=== PATIENT | female | born 1985 | race Caucasian/White ===

== ENCOUNTER 2016-04-24 22:52 | Emergency (ER) | payer MEDICAID ==
[2010-04-09 06:11] VITALS: BMI 28.2
[2016-04-24 23:27] LABS: BASOPHILS 0.9 % (0.0-2.0); EOSINOPHILS 4.2 % (0-7); HEMATOCRIT 40.4 % (36.0-48.0); HEMOGLOBIN 13.6 g/dL (12-16); IMMATURE GRANULOCYTES 0.1 % (0-5); LYMPHOCYTES 37.2 % (15-50); MCH 30.5 pg (26.0-34.0); MCHC 33.7 g/dL (31.0-37.0); MCV 90.6 fL (80.0-100.0); MEAN PLATELET VOLUME 11.8 fL (7.4-10.4); MONOCYTES 7.9 % (2-11); NEUTROPHILS 49.7 % (40-80); PLATELET COUNT 179 10x3/uL (130-400); RBC 4.46 10x6/uL (4.00-5.40); RDW 12.5 % (11.5-14.5); WBC 8.6 10x3/uL (4.8-10.8)
[2016-04-24 23:33] LABS: APPEARANCE TURBID (CLEAR); BILIRUBIN NEGATIVE (NEGATIVE); COLOR YELLOW (YELLOW); GLUCOSE NEGATIVE (NEGATIVE); HCG URINE NEGATIVE (NEGATIVE); KETONE NEGATIVE (NEGATIVE); LEUKOCYTE ESTERASE TRACE (NEGATIVE); NITRITE NEGATIVE (NEGATIVE); PH 7.5 (5.0-6.0); PROTEIN NEGATIVE (NEGATIVE); SPECIFIC GRAVITY 1.015 (1.005-1.020); UROBILINOGEN NORMAL (NORMAL)
[2016-04-24 23:38] LABS: AMORPHOUS SEDIMENT >1+ /lpf (NONE SEEN); BACTERIA MODERATE /hpf (NONE SEEN); EPITHELIAL CELLS OCC /hpf (0-5); GRANULAR CAST 0-5 /lpf (NONE SEEN); HYALINE CAST RARE /lpf (NONE SEEN); RED CELLS - URINE 0-5 /hpf (0-5); WHITE CELLS - URINE OCC /hpf (0-5)
== END 2016-04-25 02:15 | disposition home or self-care (01) ==
LOC: D.ER 22:52
PROVIDERS: Family Medicine
DX: R10.9 Unspecified abdominal pain (principal)

== ENCOUNTER → 2016-07-05 13:17 | Outpatient (CLI) | payer MEDICAID ==
[2010-04-09 06:11] VITALS: BMI 28.2
== END | disposition home or self-care (01) ==
LOC: D.CT 13:17
DX: S06.0X9A Concussion with loss of consciousness of unspecified duration, initial encounter (principal)

== ENCOUNTER 2016-09-16 15:19 | Emergency (ER) | payer MEDICAID ==
[2010-04-09 06:11] VITALS: BMI 28.2
[2016-09-16 16:00] LABS: APPEARANCE CLEAR (CLEAR); BILIRUBIN NEGATIVE (NEGATIVE); COLOR YELLOW (YELLOW); GLUCOSE NEGATIVE (NEGATIVE); KETONE NEGATIVE (NEGATIVE); LEUKOCYTE ESTERASE 1+ (NEGATIVE); NITRITE NEGATIVE (NEGATIVE); PROTEIN NEGATIVE (NEGATIVE); UROBILINOGEN NORMAL (NORMAL)
[2016-09-16 16:02] LABS: BACTERIA MODERATE /hpf (NONE SEEN); EPITHELIAL CELLS 0-5 /hpf (0-5)
[2016-09-16 16:26] LABS: EOSINOPHILS 4.8 % (0-7); HEMATOCRIT 42.4 % (36.0-48.0); HEMOGLOBIN 14.2 g/dL (12-16); IMMATURE GRANULOCYTES 0.3 % (0-5); LYMPHOCYTES 28.5 % (15-50); MCH 30.6 pg (26.0-34.0); MCHC 33.5 g/dL (31.0-37.0); MCV 91.4 fL (80.0-100.0); MEAN PLATELET VOLUME 12.7 fL (7.4-10.4); NEUTROPHILS 57.4 % (40-80); PLATELET COUNT 176 10x3/uL (130-400); RBC 4.64 10x6/uL (4.00-5.40); RDW 12.2 % (11.5-14.5)
[2016-09-16 16:42] LABS: HCG SERUM NEGATIVE (NEGATIVE)
[2016-09-16 16:44] LABS: ALBUMIN 3.7 g/dL (3.4-5.0); ALKALINE PHOSPHATASE 64 U/L (46-116); ALT (SGPT) 23 U/L (10-68); BILIRUBIN - TOTAL 0.47 mg/dL (0.2-1.3); CALC OSMOLALITY 280 mosm/kg (275-300); CALCIUM 8.9 mg/dL (8.5-10.1); CARBON DIOXIDE 25.6 mmol/L (21.0-32.0); CHLORIDE - SERUM 107 mmol/L (98-107); CREATININE - SERUM 0.7 mg/dL (0.6-1.3); GLUCOSE 82 mg/dL (74-106); POTASSIUM - SERUM 4.3 mmol/L (3.5-5.1); PROTEIN - SERUM 7.3 g/dL (6.4-8.2); SODIUM 142 mmol/L (136-145); UREA NITROGEN 10 mg/dL (7-18); eGFR NON AFRICAN AMERICAN > 90 mL/min (90-120)
== END 2016-09-16 19:11 | disposition home or self-care (01) ==
LOC: D.ER 15:19
PROVIDERS: Emergency Medicine
DX: R10.9 Unspecified abdominal pain (principal); N39.0 Urinary tract infection, site not specified

== ENCOUNTER 2019-01-23 15:00 | Inpatient (IN) | payer MEDICAID ==
[2019-01-23] VITALS (26 sets, daily range): BP systolic 100–125; BP diastolic 51–71; BMI 25.9
[~2019-01-23] VITALS: Ht 170.2 cm; Wt 88.0 kg
--- NOTE | ~2019-01-23 | HEMODYNAMI ---
PATIENT:AKHIL VILLALOBOS MEDICAL RECORD: [id number] : [birth year] LOCATION:ALEXIS DOtoniel08 ADMISSION DATE: 01/23/19 Generatedon:01/24/20199:16 Patient name: AKHIL VILLALOBOS Patient #: [id number] SSN: D OB: 1985 Date of study: 01/24/2019 Page: Of Hemodynamic Procedure Report Patient Data Patient Demographics Procedure consent was obtained First Name: AKHIL Gender: Female Last Name: GRISELDA : 1985 Middle Initial: DORIS Age: 33 year(s) Patient #: [id number] Race: Unknown Additional ID: [id number] Contact details [address]: [address] [place] [address] State: [place] City: [place] Zip code: [address] Past Medical History Allergies Allergen Reaction Date Comments Reported Natural rubber 01/24/2019 and latex Admission Admission Data Admission Date: 01/23/2019 Admission Time: 15:00 Room #: [facility] Height (in.): 67 BSA: 2.03 (m2) Height (cm.): 170.18 BMI: 31.48 (kg/m2) Weight (lbs.): 201 Weight (kg.): 91.17 Procedure Procedure Types Cath Procedure Peripheral Cath Diagnostic Procedure Tube Laser Operator Peripheral Procedures 4-Vessel Left Carotid Arteriogram Procedure Description Procedure Date Procedure Date: 01/24/2019 Procedure Start Time: 8:50 Procedure Staff Name Function Will Galeas MD Performing Physician Glenis Brown RT Photograph Developer Glenis Brown RT Monitor Mark Washington CRNA Additional personnel Lamar Saucedo RN Nurse Gregg Quiroz RT Scrub Procedure Data Cath Procedure Fluoroscopy Diagnostic fluoroscopy Total fluoroscopy Time: 1.9 time: 1.9 min min Diagnostic fluoroscopy Total fluoroscopy dose: 303 dose: 303 mGy mGy Contrast Material Contrast Material Type Amount (ml) Isovue 300 50 Entry Location Entry Primary Successful Side Size Upsize Upsize Entry Closure Succes sful Closure Location (Fr) 1 (Fr) 2 (Fr) Remarks Device Remarks Femoral Right Mynx artery Detective Captain 6Fr/7Fr Diagnostic catheters Device Type Used For End Catheter Placement Briana Ferrer 5FR. 100CM catheter ([id number]) Procedure Medications Medication Administration Route Dosage Heparin Flush Bag added to field 1 bags (1000units/500ml NS) Lidocaine 1% added to field 20 Hemodynamics Rest BSA: 2.03 (m2) O2 Consumption: Estimated: 276.08 (ml/min) O2 Consumption indexed : Estimated:136 (ml/min/m) Pre Cath Intra NCS Post Cath Medications Time Medication Route Dose Verified Delivered Reason Notes Effec tiveness by by 8:46:13 Heparin Flush added 1 Will Solis used for Bag to bags Adal Galeas procedure (1000units/500ml field MD CARABALLO NS) 8:46:25 Lidocaine 1% added 20ml Will Solis for local to vial Adal Galeas anesthetic field MD CARABALLO Procedure Log Time Note 8:20:23 Patient Height : 67 inches 8:20:26 Patient Weight : 201 lbs 8:21:16 Use device set IR Diagnostic 8:21:18 Tegaderm 4 x 4 (1626W) opened to sterile field. 8:21:19 Sterile Angiographic Pack opened to sterile field. 8:21:20 Bag Decanter (2001S) opened to sterile field. 8:21:23 ACIST Manifold (07114) opened to sterile field. 8:21:24 ACIST Hand Control (87805) opened to sterile field. 8:21:25 ACIST Syringe (33301) opened to sterile field. 8:21:50 BENTSON 145cm wire (X14354) opened to sterile field. 8:21:51 Micropuncture VSI 4FR kit opened to sterile field. 8:22:08 TUBING Contrast Injection High Pressure ([id number]) opened to sterile field. 8:22:09 SHEATH 5FR Scotia (CQR943) opened to sterile field. 8:22:19 8:22:23 Time tracking: Regular hours (M-F 7:00 - 5:00) 8:23:49 Plan of Care:Hemodynamics will remain stable., Cardiac rhythm will remain stable., Comfort level will be maintained., Respiratory function will remain adequate., Patient/ family verbilizes understanding of procedure., Procedure tolerated without complication., Recovers from procedure without complications.. 8:23:57 Patient received from CVICU to IR Alert and oriented. Tansferred to table in Supine position. 8:24:00 Signed procedure consent form obtained from patient. 8:24:01 Warm blankets applied, and harris hugger turned on for patient comfort. 8:24:04 Correct patient and procedure confirmed by team. 8:24:18 H&P Date Dictated: 01/24/2019 New H&P dictated by physician.. 8:24:20 Pre-procedure instructions explained to patient. 8:24:21 Pre-op teaching completed and patient verbalized understanding. 8:24:25 Family in waiting room. 8:24:27 Patient NPO since Midnight. 8:24:37 Patient allergic to Natural rubber and latex 8:24:42 Is the patient allergic to Iodine/contrast media? No. 8:24:55 Is patient on blood thinner?Yes 8:25:04 ACC The patient was administered the following blood thiners within the last 24 hours: ACCHeparin 8:25:17 Patient diabetic? No. 8:25:23 8:25:30 ----Pre-sedation anethsthesia assessment.----see anesthesia notes for monitoring of patient during procedure. TIVA sedation 8:26:14 8:26:44 IV patent on arrival in right hand with D5/.45%NaCl at KVO. 8:26:53 IV patent on arrival in left hand with D5/.45%NaCl at KVO. 8:27:03 Right groin area was prepped with chlora-prep and draped in sterile fashion 8:27:05 Sharps counted by scrub and verified 8:27:54 8:46:13 Heparin Flush Bag (1000units/500ml NS) 1 bags added to field was administered by Will Galeas MD; used for procedure; Verbal order read back and verified. 8:46:25 Lidocaine 1% 20ml vial added to field was administered by Will Galeas MD; for local anesthetic; Verbal order read back and verified. 8:49:21 Physician arrived 8:50:22 --------ALL STOP TIME OUT------ 8:50:22 Final Timeout: patient, procedure, and site verified with staff and physician. All members of the team are in agreement. 8:50:34 Procedure started. 8:50:34 Full Disclosure recording started 8:50:38 Local anesthetic to right femoral artery with Lidocaine 1% by Will Galeas MD.INITIAL ACCESS ONLY 8:51:50 Arterial access obtained using ultrasound guidance. 8:57:25 A [facility] Ferrer 5FR. 100CM catheter ([id number]) was advanced over the wire and used for . 9:07:33 Angiography was performed in multiple views 9:09:47 St Jose 6Fr sheath opened to sterile field. 9:10:00 MYNX CAREER PROFESSIONAL 6FR/7FR (WH7649) opened to sterile field. 9:10:29 A sheath was inserted into the Right Femoral artery 9:10:29 Sheath removed intact; hemostasis achieved with Mynx Detective Captain 6Fr/7Fr to the Right Femoral artery. 9:10:35 Procedure ended.(Physican Out) 9:13:32 Fluoroscopy time 01.90 minutes. 9:13:36 Fluoroscopy dose: 303 mGy 9:13:36 Flurop Dose total: 303 9:13:40 Contrast amount:Isovue 300 50ml. 9:13:42 Procedure and supply charges have been captured, reviewed, submitted and are correct. 9:15:25 See physician's report for complete and final results. 9:15:49 Report given to CVICU. 9:15:56 Patient transfered to CVICU with Bed. 9:15:58 End room use (Document Last) Device Usage Item Name Manufacture Quantity Catalog Hospital Part Current Minima l Lot# / Number Charge Number Stock Stock Serial# Code Tegaderm 4 x 3M 1 1626W [id number] [id number] 5 4 (1626W) Sterile Cardinal 1 [id number] 802534 967118 5 Angiographic Health Pack Bag Decanter Microtek 1 2001S 874339 47625 532326 5 (2001S) Medical Inc. ACIST Acist 1 85477 175578 880953 342002 5 Manifold Medical (52381) Systems Inc ACIST Hand Acist 1 77788 691848 281019 756246 5 Control Medical (78804) Systems Inc ACIST Syringe Acist 1 07912 021777 914378 367448 20 (25457) Medical Systems Inc BENTSON 145cm Cook Medical 1 A15271 101472 781008 5 wire (K36675) Micropuncture VSI VASCULAR 1 7266V 846601 533454 5 VSI 4FR kit SOLUTIONS TUBING Merit 1 [id number] 358288 698249 814091 5 Contrast Medical Injection High Pressure (SIY167U) SHEATH 5FR Terumo 1 LPY722 646634 619279 014527 5 Scotia (VSF386) Merit Impress Merit 1 [id number] 985809 509245 5 Ferrer Medical 5FR. 100CM catheter ([id number]) St Jose 6Fr St Jose 1 166841 980195 606703 5 sheath MYNX CAREER PROFESSIONAL Access 1 FF7923 724216 605308 5 6FR/7FR Closure (UF4905) Signature Audit Midway Stage Time Signature Unsigned Intra-Procedure 01/24/2019 Glenis Brown 9:16:16 AM RT(R) [facility] [address] [place] [address]
--- NOTE | 2019-01-23 14:35 | NUR ---
PATIENT ARRIVED TO UNIT VIA EMS STRETCHER
--- NOTE | 2019-01-23 15:30 | NUR ---
PUREWICK IN PLACE. CONTINUOUS SUCTION.
--- NOTE | 2019-01-23 15:45 | NUR ---
FAMILY AT BEDSIDE. ASSESSMENT DONE. MEDICATIONS SCANNED PER PROTOCOL
[2019-01-23 15:49] LABS: HEMATOCRIT 35.4 % (36.0-48.0); HEMOGLOBIN 11.5 g/dL (12-16); MCH 29.6 pg (26.0-34.0); MCHC 32.5 g/dL (31.0-37.0); MCV 91.2 fL (80.0-100.0); MEAN PLATELET VOLUME 11.9 fL (7.4-10.4); RBC 3.88 10x6/uL (4.00-5.40); RDW 13.1 % (11.5-14.5); WBC 11.5 10x3/uL (4.8-10.8)
[2019-01-23 15:58] LABS: APTT 56.2 SECONDS (22.8-39.4); INR 1.14 (0.85-1.17); PROTIME 14.1 SECONDS (11.6-15.0)
--- NOTE | 2019-01-23 16:47 | NUR ---
PTT CAME BACK INCREASED 100 UNITS PER PROTOCOL.
--- NOTE | 2019-01-23 17:03 | NUR ---
PATIENT STATES SHE IS PAIN. STATED IN AN HOUR SHE CAN GET HER PAIN MEDICATION. ALERT AND ORIENTED. NO DISTRESS. FAMILY AT BEDSIDE.
--- NOTE | 2019-01-23 18:42 | NUR ---
PATIENT IS ASLEEP. VALIUM GIVEN PER ORDER. VALIUM HAS SEEMED TO HELP PATIENT REST COMFORTABLY.
--- NOTE | 2019-01-23 19:00 | NUR ---
SHIFT ASSESSMENT COMPLETE. PT IS SITTING UP IN BED, A&O X4, PERRLA 3 MM, BRISK REACTION TO LIGHT. RR EVEN AND UNALBORED. S1S2 AUDIBLE, NSR SHOWING ON MONITOR. L FA PIV INFUSING PLASMALYTE @ 125 ML/HR AND HEPARIN @ 1200 UN/HR. R HAND PIV INFUSING DILAUDID VISCOSE DEPARTMENT WORKER: 0.2 MG Q10 MIN, BOLUS Q3H PRN 0.4 MG, 4 HR LOCKOUT, AND NS @ 30 ML/HR. RADIAL PULSES PALP. ABD FLAT, BS ACTIVE X4. PUREWICK CATH INTACT DRAINING CONCENTRATED URINE. R LEG ELEVATED ON PILLOWS, SPLINT IN PLACE, PEDAL PULSE PALP, GENERALIZED SWELLING NOTED. L PEDAL PULSE PALP, EQUAL. REFRESHMENTS BROUGHT TO BEDSIDE. CONSENTS SIGNED BY PT'S MOTHER AND PLACED ON FRONT OF CHART. ANSWERED ALL QUESTIONS, CALL LIGHT IN REACH, FAMILY AT BEDSIDE. NO FURTHER NEEDS AT THIS TIME.
[2019-01-23 19:37] LABS: BASOPHILS 0.3 % (0-2); HEMATOCRIT 34.5 % (36.0-48.0); HEMOGLOBIN 11.4 g/dL (12-16); IMMATURE GRANULOCYTES 0.3 % (0-5); LYMPHOCYTES 18.9 % (15-50); MCH 29.7 pg (26.0-34.0); MCV 89.8 fL (80.0-100.0); MEAN PLATELET VOLUME 11.7 fL (7.4-10.4); MONOCYTES 8.9 % (2-11); NEUTROPHILS 70.6 % (40-80); PLATELET COUNT 154 10x3/uL (130-400); RBC 3.84 10x6/uL (4.00-5.40); RDW 12.9 % (11.5-14.5); WBC 12.2 10x3/uL (4.8-10.8)
--- NOTE | 2019-01-23 20:00 | NUR ---
ADJUSTED PT'S R LEG X4 ASSIST. PT CRYING OUT IN PAIN, REGISTERED NURSE AMBULATORY BUTTON PRESSED. FAMILY AT BEDSIDE PROVIDING DISTRACTION FROM PAIN. WILL CONT TO ASSESS PAIN MANAGEMENT.
--- NOTE | 2019-01-23 21:00 | NUR ---
FAMILY AT BEDSIDE. REFRESHMENTS PROVIDED. FAN PLACED IN ROOM. NO FURTHER NEEDS AT THIS TIME.
--- NOTE | 2019-01-23 23:00 | NUR ---
LAB AT BEDSIDE DRAWING APTT. REASSESSMENT COMPLETE. NO CHANGES IN PT CONDITION. ENCOURAGE CORE WINDER MACHINE OPERATOR USE D/T BREAK THROUGH PAIN. REPOSITIONED SHOULDERS FOR COMFORT. FAMILY AT BEDSIDE. SEE FLOWSHEET FOR FURTHER DETAILS. WILL CONT WITH POC.
[2019-01-23 23:24] LABS: BASOPHILS 0.3 % (0-2); EOSINOPHILS 0.8 % (0-7); HEMATOCRIT 34.3 % (36.0-48.0); HEMOGLOBIN 11.1 g/dL (12-16); IMMATURE GRANULOCYTES 0.3 % (0-5); LYMPHOCYTES 25.5 % (15-50); MCH 29.5 pg (26.0-34.0); MCHC 32.4 g/dL (31.0-37.0); MCV 91.2 fL (80.0-100.0); MEAN PLATELET VOLUME 11.6 fL (7.4-10.4); MONOCYTES 7.6 % (2-11); NEUTROPHILS 65.5 % (40-80); PLATELET COUNT 147 10x3/uL (130-400); RBC 3.76 10x6/uL (4.00-5.40); WBC 11.4 10x3/uL (4.8-10.8)
--- NOTE | 2019-01-23 23:43 | NUR ---
APTT RESULTS ARE BACK. HEPARIN GTT ON HOLD FOR 30 MIN AND THEN DECREASE BY 100 UN/HR PER PROTOCOL. SEE HEPARIN FLOWSHEET FOR FURTHER DETAILS.
--- NOTE | 2019-01-23 23:48 | NUR ---
PRN VALIUM ADMIN FOR MUSCLE SPASMS. PT IS RESTING COMFORTABLY AT THIS TIME. WILL CONT TO MONITOR. FAMILY AT BEDSIDE.
[2019-01-24] VITALS (45 sets, daily range): BP systolic 96–150; BP diastolic 48–93
--- NOTE | 2019-01-24 00:18 | NUR ---
HEPARIN GTT RESTARTED, DECREASED BY 100 UN. NEW RATE IS 1100 UN/HR. WILL CONT TO MONITOR.
--- NOTE | 2019-01-24 03:00 | NUR ---
REASSESSMENT COMPLETE. VSS. CHANGED PUREWICK CATH. PT TOLERATED WELL. SEE FLOWSHEET FOR FURTHER DETAILS. REPOSITIONED FOR COMFORT. REGISTERED SALES ASSISTANT BUTTON IN HAND, ENCOURAGED USE WHEN IN PAIN AND PROVIDED EDUCATION R/T BREAKTHROUGH PAIN. NO FURTHER QUESTIONS. FAMILY AT BEDSIDE. WILL CONT TO MONITOR.
--- NOTE | 2019-01-24 03:40 | NUR ---
LAB AT BEDSIDE DRAWING APTT AND AM LAB.
[2019-01-24 04:18] LABS: BASOPHILS 0.4 % (0-2); EOSINOPHILS 1.2 % (0-7); HEMATOCRIT 32.6 % (36.0-48.0); HEMOGLOBIN 10.4 g/dL (12-16); IMMATURE GRANULOCYTES 0.2 % (0-5); LYMPHOCYTES 22.8 % (15-50); MCH 29.2 pg (26.0-34.0); MCHC 31.9 g/dL (31.0-37.0); MCV 91.6 fL (80.0-100.0); MEAN PLATELET VOLUME 11.7 fL (7.4-10.4); MONOCYTES 9.5 % (2-11); NEUTROPHILS 65.9 % (40-80); PLATELET COUNT 148 10x3/uL (130-400); RBC 3.56 10x6/uL (4.00-5.40); WBC 9.5 10x3/uL (4.8-10.8)
--- NOTE | 2019-01-24 05:00 | NUR ---
CHG BATH AND PARTIAL LINEN CHANGE PROVIDED. PT TOLERATED WELL. WARM BLANKET PROVIDED. NO FURTHER NEEDS AT THIS TIME. WILL CONT WITH POC.
--- NOTE | 2019-01-24 05:50 | NUR ---
CALLED OR, NO PRE-OP ORDERS. NO ANSWER.
--- NOTE | 2019-01-24 06:05 | NUR ---
CALLED OR, STILL NO ANSWER. NO PRE-OP ORDERS.
--- NOTE | 2019-01-24 06:54 | NUR ---
DR. DING AT BEDSIDE. UPDATED FAMILY ON SURGERY SCHEDULE. CALLING IR NOW.
--- NOTE | 2019-01-24 07:33 | NUR ---
UP IN BED AWAKE AT THIS TIME VISITING WITH FAMILY NO ACUTE DISTRESS NOTED. VSS. PT STATES HER CURRENT PAIN LEVEL IS AT A ZERO. PEDAL PULSES PRESENT. SEE SHIFT ASSESSMENT FOR FURTHER INFORMATION. WILL CONTINUE PLAN OF CARE.
--- NOTE | 2019-01-24 08:03 | NUR ---
LEFT AT THIS TIME TO IR ACCOMPANIED BY HOSPITAL STAFF. FAMILY AT BEDSIDE. LEFT ON MONITORING EQUIPMENT.
--- NOTE | 2019-01-24 09:30 | NUR ---
RETURNED FROM PROCEDURE AT THIS TIME. VSS. PT RESTING WITH EYES CLOSED, AWAKENS WHEN SPOKEN TO THEN GOES BACK TO SLEEP. FAMILY AT BEDSIDE. WILL CONTINUE PLAN OF CARE.
--- NOTE | 2019-01-24 09:47 | NUR ---
GROIN SITE CDI, NO EDEMA, NO REDNESS OR DRAINAGE. WILL CONTACT DR AN FOR FURTHER ORDERS REGARDING HEPARIN DRIP BEFORE PROCEDURE.
--- NOTE | 2019-01-24 10:12 | NUR ---
PER DR RUIZ NURSE ANATOLY, DR AN HAS SPOKEN WITH DR ARROYO AND STATE TO CONTINUE HEPARIN GTT AT THIS TIME AND PT WILL BE TAKEN TO OR WITH HEPARIN GTT RUNNING. NO ACUTE DISTRESS NOTED. WILL CONTINUE PLAN OF CARE.
--- NOTE | 2019-01-24 10:54 | NUR ---
NO ACUTE DISTRESS NOTED AT THIS TIME. VSS. FAMILY AT BEDSIDE. PEDAL PULSES PRESENT. RT GROIN SITE WDL. WILL CONTINUE TO OBSERVE.
[2019-01-24 11:45] LABS: BASOPHILS 0.3 % (0-2); EOSINOPHILS 0.8 % (0-7); HEMOGLOBIN 10.5 g/dL (12-16); IMMATURE GRANULOCYTES 0.2 % (0-5); LYMPHOCYTES 17.5 % (15-50); MCH 29.7 pg (26.0-34.0); MCHC 31.8 g/dL (31.0-37.0); MCV 93.2 fL (80.0-100.0); MEAN PLATELET VOLUME 11.8 fL (7.4-10.4); MONOCYTES 8.5 % (2-11); NEUTROPHILS 72.7 % (40-80); PLATELET COUNT 128 10x3/uL (130-400); RBC 3.54 10x6/uL (4.00-5.40); RDW 13.1 % (11.5-14.5); WBC 10.9 10x3/uL (4.8-10.8)
--- NOTE | 2019-01-24 11:48 | NUR ---
family at bedside. assessment done at this time. no distress. patient is sleeping. awaiting for surgery. was informed in report dr ward spoke with healthcare team in regards of keeping patient on heparin drip.
--- NOTE | 2019-01-24 12:35 | NUR ---
patient gone to procedure
--- NOTE | 2019-01-24 14:34 | NUR ---
report called by josé manuel
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
--- NOTE | 2019-01-24 15:10 | NUR ---
patient arrived to unit
--- NOTE | 2019-01-24 15:27 | NUR ---
ancef not given because anesthesia sheet states they gave it in the OR
[2019-01-24 15:39] LABS: BASOPHILS 0.4 % (0-2); EOSINOPHILS 0.1 % (0-7); HEMATOCRIT 32.4 % (36.0-48.0); HEMOGLOBIN 10.6 g/dL (12-16); IMMATURE GRANULOCYTES 0.8 % (0-5); LYMPHOCYTES 7.2 % (15-50); MCH 29.6 pg (26.0-34.0); MCHC 32.7 g/dL (31.0-37.0); MCV 90.5 fL (80.0-100.0); MEAN PLATELET VOLUME 11.6 fL (7.4-10.4); NEUTROPHILS 86.5 % (40-80); PLATELET COUNT 127 10x3/uL (130-400); RBC 3.58 10x6/uL (4.00-5.40); RDW 12.8 % (11.5-14.5); WBC 12.1 10x3/uL (4.8-10.8)
--- NOTE | 2019-01-24 15:45 | NUR ---
BLEEDING ON ZEPEDA MARKED VIA MARKER TO MONITOR BLEEDING. PULSE IS PALP BUT WEAK. WARM EXTREMITY.
--- NOTE | 2019-01-24 16:37 | NUR ---
PATIENT URINATED BUT PUREWICK SEEMS TO BE LEAKING. PATIENT WAS CLEANED UP
--- NOTE | 2019-01-24 16:37 | NUR ---
FULL LINEN CHANGE
--- NOTE | 2019-01-24 17:22 | NUR ---
PATIENT ABLE TO TURN FROM SIDE TO SIDE SLOWLY. PUREWICK IN PLACE
--- NOTE | 2019-01-24 18:48 | MORECARE ---
CASE MANAGEMENT DISCHARGE SUMMARY PATIENT: AKHIL VILLALOBOS UNIT: [id number] ADM DATE: 01/23/19 AGE: 33 : [birth year] SEX: F [facility] AUTHOR: CASH TIERNEY PHYSICIAN: REFERRING PHYSICIAN: MARK MANUEL MD DATE OF SERVICE: 01/24/19 Discharge Plan Patient Name: AKHIL VILLALOBOS [facility] [facility] 1985 Planned Disposition: Anticipated Discharge Date: Discharge Date: Expected LOS: Initial Reviewer: [email or web address] Initial Review Date: 01/24/2019 Generated: 01/24/19 7:47 pm DCPIA - Discharge Planning Initial Assessment Updated by [email or web address]: Yany Lovett on 01/24/19 6:46 pm * Is the patient Alert and Oriented? Yes * How many steps to enter\exit or inside your home? * Preadmission Environment Home with Family * ADLs Independent * List name and contact numbers for known caregivers / representatives who currently or will assist patient after discharge: [facility] [phone] * Verbal permission to speak to the caregivers and representatives has been obtained from the patient. Yes * Additional services required to return to the preadmission environment? No * Can the patient safely return to the preadmission environment? Yes * Has this patient been hospitalized within the prior 30 days at any hospital? No Patient Name: AKHIL VILLALOBOS Page [phone] at 1848 All edits/amendments must be made on the electronic document DICTATION DATE: 01/24/191846 CUSTOMER ASSISTANT: LENORA 01/24/191846 RPT#: [id number] DC DATE: STATUS: [facility]M [facility] [address] [place] [address] END OF REPORT
--- NOTE | 2019-01-24 18:54 | MORECARE ---
CASE MANAGEMENT DISCHARGE SUMMARY PATIENT: AKHIL VILLALOBOS UNIT: [id number] ADM DATE: 01/23/19 AGE: 33 : [birth year] SEX: F [facility]ED: [facility] AUTHOR: NIALL,DOC PHYSICIAN: REFERRING PHYSICIAN: MARK MANUEL MD DATE OF SERVICE: 01/24/19 Discharge Plan Patient Name: AKHIL VILLALOOBS Facility: [facility]:[place] : 1985 Planned Disposition: Anticipated Discharge Date: Discharge Date: Expected LOS: Initial Reviewer: [email or web address] Initial Review Date: 01/24/2019 Generated: 01/24/19 7:54 pm Comments DCP- Discharge Planning Updated by [email or web address]: Yany Lovett on 01/24/19 5:[address] Patient Name: AKHIL VILLALOBOS Admission Status: Elective Accout number: [id number] Admission Date: 01-23-2019 : 1985 Admission Diagnosis: Attending: MARK MANUEL Current LOS: 1 Anticipated DC Date: Planned Disposition: Primary Insurance: MEDICAID [place] Discharge Planning Comments: CM met with patient to complete initial dc planning assessment. CM educated patient on the CM role and verbal consent given by patient to complete assessment. Patient lives at home with her where she is independent with her care. At discharge patient plans to return home and feels this is a safe discharge. CM discussed availability of home health, rehab services, and medical equipment. Uncertain of DME needs will need wheelchair, BSC and uncertain past that point. Patient is going to need continued care at home family trying to decide where she is going to stay for a while. CM will need to check on transportation possibly with [employer] since patient can't bend leg. CM will continue to follow and will assist as needed with dc plans/needs. Pig Iron Loader: Yany Lovett DCPIA - Discharge Planning Initial Assessment Updated by [email or web address]: Yany Lovett on 01/24/19 6:46 pm * Is the patient Alert and Oriented? Yes * How many steps to enter\exit or inside your home? * Preadmission Environment Home with Family * ADLs Independent * List name and contact numbers for known caregivers / representatives who currently or will assist patient after discharge: NORM BASURTO - [phone] * Verbal permission to speak to the caregivers and representatives has been obtained from the patient. Yes * Additional services required to return to the preadmission environment? No * Can the patient safely return to the preadmission environment? Yes * Has this patient been hospitalized within the prior 30 days at any hospital? No Last DP export: 01/24/19 5:48 Patient Name: AKHIL VILLALOBOS Page [phone] at 1854 All edits/amendments must be made on the electronic document DICTATION DATE: 01/24/191853 STEEPING PRESS OPERATOR: LENORA 01/24/191853 RPT#: [id number] MO DATE: STATUS: ADM IN [facility] [address] [place] [address] END OF REPORT
--- NOTE | 2019-01-24 19:30 | NUR ---
REPORT REC'D AND CARE ASSUMED, PT REC'D ON O2 @ 2LITERS VIA NC, FAMILY AT BS, PT AWAKE, ALERT, AND ORIENTED X 4, RIGHT HAND PIV WITH NS @ 30CC/HR AND DILAUDID WEBSITE PROGRAMMER INFUSING, PT DENIES PAIN AT THIS TIME, LEFT FOREARM PIV WITH HEPARIN @ 1200UNITS/HR AND PLASMALYTE 125CC/HR, GENERALIZED BRUISING TO CHEST, TORSO, AND LEGS, PUREWICK IN USE, CLEAR YELLOW URINE NOTED, EXTERNAL FIXATOR TO RIGHT LEG, RIGHT LEG ELEVATED ON PILLOW, ICE PACKS TO SITE, PPP, PT DENIES NEEDS, SR UP X 2, BED IN LOW POSITION, CALL LIGHT AND WEBSITE PROGRAMMER IN REACH.
[2019-01-24 20:54] LABS: BASOPHILS 0.1 % (0-2); EOSINOPHILS 0 % (0-7); HEMATOCRIT 30.8 % (36.0-48.0); HEMOGLOBIN 10.2 g/dL (12-16); IMMATURE GRANULOCYTES 0.2 % (0-5); LYMPHOCYTES 6.9 % (15-50); MCH 29.9 pg (26.0-34.0); MCHC 33.1 g/dL (31.0-37.0); MCV 90.3 fL (80.0-100.0); MEAN PLATELET VOLUME 11.3 fL (7.4-10.4); MONOCYTES 4.8 % (2-11); PLATELET COUNT 145 10x3/uL (130-400); RBC 3.41 10x6/uL (4.00-5.40); RDW 12.7 % (11.5-14.5); WBC 10.7 10x3/uL (4.8-10.8)
--- NOTE | 2019-01-24 21:10 | NUR ---
5MG VALIUM GIVEN SLOW IVP FOR COMPLAINTS OF SPASMS IN LEG, PT USING DILAUDID CONTROL PANEL TESTER FOR PAIN CONTROL, ICE WATER PROVIDED, BRIM PRESSER CALLED FOR DR. ALCALA.
--- NOTE | 2019-01-24 22:00 | NUR ---
PT USING PUREWICK DEVICE BUT DEVICE LEAKING, PARTIAL BED CHANGE AND PUREWICK EXCHANGED FOR PT COMFORT, SIGNIFICANT OTHER REMAINS AT BS. PT DENIES FURTHER NEEDS, WILL CONT TO MONITOR CLOSELY FOR CHANGES.
--- NOTE | 2019-01-24 22:15 | NUR ---
DR. MANUEL AT , NEW ORDERS REC'D.
--- NOTE | 2019-01-24 22:30 | NUR ---
EVENING MEDS GIVEN ORDERED, PT DENIES FURTHER NEEDS, VSS.
--- NOTE | 2019-01-24 23:00 | NUR ---
REASSESSMENT COMPLETED, PT RESTING QUIETLY WATCHING TV, DENIES PAIN OR NEEDS, ICE PROVIDED ON REQUEST, BP STABLE, CM-ST @ 105, WILL CONT TO MONITOR FOR CHANGES.
[2019-01-25] VITALS (20 sets, daily range): BP systolic 86–130; BP diastolic 38–77
--- NOTE | 2019-01-25 01:15 | NUR ---
PUREWICK LEAKING, PARTIAL BATH AND LINEN CHANGE PROVIDED, PT REPOSITIONED FOR COMFORT, ICE PACKS REFILLED TO OPERATIVE LEG, ICE WATER PROVIDED ON REQUEST, SIGNIFICANT OTHER ASLEEP AT BS, VSS, PT DENIES FURTHER NEEDS.
--- NOTE | 2019-01-25 03:10 | NUR ---
PT RESTING QUIETLY, VSS, 5MG VALIUM GIVEN SLOW IVP FOR MUSCLE SPASMS, PT DENIES NEEDS.
--- NOTE | 2019-01-25 04:15 | NUR ---
LAB AT FOR AM LAB DRAW
[2019-01-25 04:20] LABS: BASOPHILS 0.2 % (0-2); EOSINOPHILS 0 % (0-7); HEMATOCRIT 28.3 % (36.0-48.0); HEMOGLOBIN 9.3 g/dL (12-16); IMMATURE GRANULOCYTES 0.2 % (0-5); LYMPHOCYTES 11.7 % (15-50); MCH 29.5 pg (26.0-34.0); MCHC 32.9 g/dL (31.0-37.0); MCV 89.8 fL (80.0-100.0); MEAN PLATELET VOLUME 11.6 fL (7.4-10.4); NEUTROPHILS 79.9 % (40-80); PLATELET COUNT 141 10x3/uL (130-400); RBC 3.15 10x6/uL (4.00-5.40); RDW 12.7 % (11.5-14.5); WBC 10.9 10x3/uL (4.8-10.8)
--- NOTE | 2019-01-25 06:20 | NUR ---
AM MEDS GIVEN ORDERED, DILAUDID SENSOR OPERATOR SYRINGE EXCHANGED, ICE PACKS REFILLED, PT DENIES FURTHER NEEDS, VSS.
[2019-01-25 07:33] LABS: BASOPHILS 0.2 % (0-2); EOSINOPHILS 0.2 % (0-7); HEMATOCRIT 28.4 % (36.0-48.0); HEMOGLOBIN 9.3 g/dL (12-16); IMMATURE GRANULOCYTES 0.3 % (0-5); LYMPHOCYTES 16.2 % (15-50); MCH 29.5 pg (26.0-34.0); MCHC 32.7 g/dL (31.0-37.0); MCV 90.2 fL (80.0-100.0); MEAN PLATELET VOLUME 11.1 fL (7.4-10.4); MONOCYTES 8.5 % (2-11); NEUTROPHILS 74.6 % (40-80); PLATELET COUNT 132 10x3/uL (130-400); RBC 3.15 10x6/uL (4.00-5.40); RDW 12.6 % (11.5-14.5); WBC 10.6 10x3/uL (4.8-10.8)
--- NOTE | 2019-01-25 14:07 | MORECARE ---
CASE MANAGEMENT DISCHARGE SUMMARY PATIENT: AKHIL VILLALOBOS UNIT: [id number] ADM DATE: 01/23/19 AGE: 33 : [birth year] SEX: F ROOM/BED: D[facility] AUTHOR: NIALL,DOC PHYSICIAN: REFERRING PHYSICIAN: MARK MANUEL MD DATE OF SERVICE: 01/25/19 Discharge Plan Patient Name: AKHIL VILLALOBOS Facility: [facility]:[place] : 1985 Planned Disposition: Anticipated Discharge Date: Discharge Date: Expected LOS: Initial Reviewer: [email or web address] Initial Review Date: 01/24/2019 Generated: 01/25/19 3:07 pm Comments DCP- Discharge Planning Updated by [id number]: Yany Lovett on 01/24/19 5:[address] Patient Name: AKHIL VILLALOBOS Admission Status: Elective Accout number: [id number] Admission Date: 01-23-2019 : 1985 Admission Diagnosis: Attending: MARK MANUEL Current LOS: 1 Anticipated DC Date: Planned Disposition: Primary Insurance: MEDICAID [place] Discharge Planning Comments: CM met with patient to complete initial dc planning assessment. CM educated patient on the CM role and verbal consent given by patient to complete assessment. Patient lives at home with her where she is independent with her care. At discharge patient plans to return home and feels this is a safe discharge. CM discussed availability of home health, rehab services, and medical equipment. Uncertain of DME needs will need wheelchair, BSC and uncertain past that point. Patient is going to need continued care at home family trying to decide where she is going to stay for a while. CM will need to check on transportation possibly with [employer] since patient can't bend leg. CM will continue to follow and will assist as needed with dc plans/needs. Engineering Director: Yany Lovett DCPIA - Discharge Planning Initial Assessment Updated by [email or web address]: Yany Lovett on 01/24/19 6:46 pm * Is the patient Alert and Oriented? Yes * How many steps to enter\exit or inside your home? * Preadmission Environment Home with Family * ADLs Independent * List name and contact numbers for known caregivers / representatives who currently or will assist patient after discharge: NORM BASURTO - [phone] * Verbal permission to speak to the caregivers and representatives has been obtained from the patient. Yes * Additional services required to return to the preadmission environment? No * Can the patient safely return to the preadmission environment? Yes * Has this patient been hospitalized within the prior 30 days at any hospital? No External Providers [facility] Next Contact Date: Service Request Date: Service Type: Resolution: Reviewer: Comments: Last DP export: 01/24/19 5:54 Patient Name: AKHIL VILLALOBOS Page [phone] at 1407 All edits/amendments must be made on the electronic document DICTATION DATE: 01/25/191406 BLANKER OPERATOR: LENORA 01/25/191406 RPT#: [id number] DC DATE: STATUS: ADM IN [facility] [address] [place] [address] END OF REPORT
--- NOTE | 2019-01-25 14:18 | MORECARE ---
CASE MANAGEMENT DISCHARGE SUMMARY PATIENT: AKHIL VILLALOBOS UNIT: [id number] ADM DATE: 01/23/19 AGE: 33 : 89 SEX: F ROOM/BED: D.[facility] AUTHOR: NIALL,DOC PHYSICIAN: REFERRING PHYSICIAN: MARK MANUEL MD DATE OF SERVICE: 01/25/19 Discharge Plan Patient Name: AKHIL VILLALOBOS Facility: [facility]:[place] : 1985 Planned Disposition: Anticipated Discharge Date: Discharge Date: Expected LOS: Initial Reviewer: [email or web address] Initial Review Date: 01/24/2019 Generated: 01/25/19 3:17 pm Comments DCP- Discharge Planning Updated by [email or web address]: Yany Lovett on 01/24/19 5:[address] Patient Name: AKHIL VILLALOBOS Admission Status: Elective Accout number: [id number] Admission Date: 01-23-2019 : 1985 Admission Diagnosis: Attending: MARK MANUEL Current LOS: 1 Anticipated DC Date: Planned Disposition: Primary Insurance: MEDICAID [place] Discharge Planning Comments: CM met with patient to complete initial dc planning assessment. CM educated patient on the CM role and verbal consent given by patient to complete assessment. Patient lives at home with her where she is independent with her care. At discharge patient plans to return home and feels this is a safe discharge. CM discussed availability of home health, rehab services, and medical equipment. Uncertain of DME needs will need wheelchair, BSC and uncertain past that point. Patient is going to need continued care at home family trying to decide where she is going to stay for a while. CM will need to check on transportation possibly with [employer] since patient can't bend leg. CM will continue to follow and will assist as needed with dc plans/needs. Bench Worker Apprentice: Yany Lovett DCPIA - Discharge Planning Initial Assessment Updated by [email or web address]: Yany Lovett on 01/24/19 6:46 pm * Is the patient Alert and Oriented? Yes * How many steps to enter\exit or inside your home? * Preadmission Environment Home with Family * ADLs Independent * List name and contact numbers for known caregivers / representatives who currently or will assist patient after discharge: NORM BASURTO - [phone] * Verbal permission to speak to the caregivers and representatives has been obtained from the patient. Yes * Additional services required to return to the preadmission environment? No * Can the patient safely return to the preadmission environment? Yes * Has this patient been hospitalized within the prior 30 days at any hospital? No External Providers External Provider: [facility] Next Contact Date: Service Request Date: Service Type: Resolution: Reviewer: Comments: Last DP export: 01/25/19 1:07 Patient Name: AKHIL VILLALOBOS Page [phone] at 1418 All edits/amendments must be made on the electronic document DICTATION DATE: 01/25/191417 RESIDENTIAL LIVING ASSISTANT: LENORA 01/25/191417 RPT#: [id number] DC DATE: STATUS: ADM IN [facility] [address] [place] [address] END OF REPORT
--- NOTE | 2019-01-25 14:50 | MORECARE ---
CASE MANAGEMENT DISCHARGE SUMMARY PATIENT: AKHIL VILLALOBOS UNIT: [id number] ADM DATE: 01/23/19 AGE: 33 : [birth year] SEX: F ROOM/BED: D.[facility] AUTHOR: NIALL,DOC PHYSICIAN: REFERRING PHYSICIAN: MARK MANUEL MD DATE OF SERVICE: 01/25/19 Discharge Plan Patient Name: AKHIL VILLALOBOS Facility: [facility]:[place] : 1985 Planned Disposition: Anticipated Discharge Date: Discharge Date: Expected LOS: Initial Reviewer: [email or web address] Initial Review Date: 01/24/2019 Generated: 01/25/19 3:49 pm Comments DCP- Discharge Planning Updated by [email or web address]: Yany Lovett on 01/24/19 5:[address] Patient Name: AKHIL VILLALOBOS Admission Status: Elective Accout number: [id number] Admission Date: 01-23-2019 : 1985 Admission Diagnosis: Attending: MARK MANUEL Current LOS: 1 Anticipated DC Date: Planned Disposition: Primary Insurance: MEDICAID [place] Discharge Planning Comments: CM met with patient to complete initial dc planning assessment. CM educated patient on the CM role and verbal consent given by patient to complete assessment. Patient lives at home with her where she is independent with her care. At discharge patient plans to return home and feels this is a safe discharge. CM discussed availability of home health, rehab services, and medical equipment. Uncertain of DME needs will need wheelchair, BSC and uncertain past that point. Patient is going to need continued care at home family trying to decide where she is going to stay for a while. CM will need to check on transportation possibly with [employer] since patient can't bend leg. CM will continue to follow and will assist as needed with dc plans/needs. Manager Competitive Intelligence: Yany Lovett DCPIA - Discharge Planning Initial Assessment Updated by [email or web address]: Yany Lovett on 01/24/19 6:46 pm * Is the patient Alert and Oriented? Yes * How many steps to enter\exit or inside your home? * Preadmission Environment Home with Family * ADLs Independent * List name and contact numbers for known caregivers / representatives who currently or will assist patient after discharge: NORM BASURTO - [phone] * Verbal permission to speak to the caregivers and representatives has been obtained from the patient. Yes * Additional services required to return to the preadmission environment? No * Can the patient safely return to the preadmission environment? Yes * Has this patient been hospitalized within the prior 30 days at any hospital? No External Providers External Provider: [facility] Next Contact Date: Service Request Date: Service Type: Resolution: Reviewer: Comments: Last DP export: 01/25/19 1:18 Patient Name: AKHIL VILLALOBOS Page [phone] at 1450 All edits/amendments must be made on the electronic document DICTATION DATE: 01/25/191448 BUTCHER SUPERVISOR: LENORA 01/25/191448 RPT#: [id number] DC DATE: STATUS: ADM IN [facility] [address] [place] [address] END OF REPORT
--- NOTE | 2019-01-25 15:42 | MORECARE ---
CASE MANAGEMENT DISCHARGE SUMMARY PATIENT: AKHIL VILLALOBOS UNIT: [id number] ADM DATE: 01/23/19 AGE: 33 : [birth year] SEX: F ROOM/BED: D[facility] AUTHOR: NIALL,DOC PHYSICIAN: REFERRING PHYSICIAN: MARK MANUEL MD DATE OF SERVICE: 01/25/19 Discharge Plan Patient Name: AKHIL VILLALOBOS Facility: [facility]:[place] : 1985 Planned Disposition: Anticipated Discharge Date: Discharge Date: Expected LOS: Initial Reviewer: [email or web address] Initial Review Date: 01/24/2019 Generated: 01/25/19 4:42 pm Comments DCP- Discharge Planning Updated by [email or web address]: Yany Lovett on 01/25/19 2:[address] CM spoke with patient and mother Janay regarding d/c needs. LEN signed for DME, HH and personal care. CM contacted [facility] with [facility] [phone] for wheelchair with leg extension, and bedside commode to deliver to patients room today. Home [facility] with [facility] spoke with Jagjit and he gave CM information for LR unit to contact Aishwarya [phone] fax [phone]. CM faxed over orders and records. CM spoke with [facility] regarding care givers and Medicaid benefits. Patient qualifies for 14.5hrs weekly of in home care. CM faxed records to Amber and notified her that patient will likely discharge on Monday. CM got order for Lovenox injections per Dr. Washington as to what patient will be sent home on to check and see if Medicaid requires a pre-auth. CM contacted [facility] in [place] [phone] for Lovenox 80mg BID for 5 days cost to patient will be $3.00. Called RX into pharmacy they will fill once patient gets there to peanut picker. Patient may require a slide board to get in W/C . CM will re-evaluate after PT works with patient again tomorrow. CM will setup [employer] bus transportation home once discharged. CM will continue to follow and assist as needed with discharge planning / needs. DCP- Discharge Planning Updated by [email or web address]: Yany Lovett on 01/24/19 5:[address] Patient Name: AKHIL VILLALOBOS Admission Status: Elective Accout number: [id number] Admission Date: 01-23-2019 : 1985 Admission Diagnosis: Attending: MARK MANUEL Current LOS: 1 Anticipated DC Date: Planned Disposition: Primary Insurance: MEDICAID [place] Discharge Planning Comments: CM met with patient to complete initial dc planning assessment. CM educated patient on the CM role and verbal consent given by patient to complete assessment. Patient lives at home with her where she is independent with her care. At discharge patient plans to return home and feels this is a safe discharge. CM discussed availability of home health, rehab services, and medical equipment. Uncertain of DME needs will need wheelchair, BSC and uncertain past that point. Patient is going to need continued care at home family trying to decide where she is going to stay for a while. CM will need to check on transportation possibly with [employer] since patient can't bend leg. CM will continue to follow and will assist as needed with dc plans/needs. Silver Miner: Yany Lovett DCPIA - Discharge Planning Initial Assessment Updated by [email or web address]: Yany Lovett on 01/24/19 6:46 pm * Is the patient Alert and Oriented? Yes * How many steps to enter\exit or inside your home? * Preadmission Environment Home with Family * ADLs Independent * List name and contact numbers for known caregivers / representatives who currently or will assist patient after discharge: JANAY CARBONE [facility] [phone] * Verbal permission to speak to the caregivers and representatives has been obtained from the patient. Yes * Additional services required to return to the preadmission environment? No * Can the patient safely return to the preadmission environment? Yes * Has this patient been hospitalized within the prior 30 days at any hospital? No Last DP export: 01/25/19 1:50 Patient Name: AKHIL VILLALOBOS Page 52586 at 1542 All edits/amendments must be made on the electronic document DICTATION DATE: 01/25/19 1542 CLINICAL PROJECT ASSISTANT: LENORA 01/25/19 1542 RPT#: [id number] DC DATE: STATUS: ADM IN [facility] [address] [place] [address] END OF REPORT
--- NOTE | 2019-01-25 15:55 | MORECARE ---
CASE MANAGEMENT DISCHARGE SUMMARY PATIENT: AKHIL VILLALOBOS UNIT: [id number] ADM DATE: 01/23/19 AGE: 33 : [birth year] SEX: F ROOM/BED: D[facility] AUTHOR: NIALL,DOC PHYSICIAN: REFERRING PHYSICIAN: MARK MANUEL MD DATE OF SERVICE: 01/25/19 Discharge Plan Patient Name: AKHIL VILLALOBOS Facility: [facility]:[place] : 1985 Planned Disposition: Anticipated Discharge Date: Discharge Date: Expected LOS: Initial Reviewer: [email or web address] Initial Review Date: 01/24/2019 Generated: 01/25/19 4:54 pm Comments DCP- Discharge Planning Updated by [id number]: Yany Lovett on 01/25/19 2:[address] CM spoke with patient and mother Janay regarding d/c needs. LEN signed for DME, HH and personal care. CM contacted [facility] with [facility] [phone] for wheelchair with leg extension, and bedside commode to deliver to patients room today. Home [facility] with [facility] spoke with Jagjit and he gave CM information for LR unit to contact Aishwarya [phone] fax [phone]. CM faxed over orders and records. CM spoke with [facility] regarding care givers and Medicaid benefits. Patient qualifies for 14.5hrs weekly of in home care. CM faxed records to [facility] and notified her that patient will likely discharge on Monday. CM got order for Lovenox injections per Dr. Washington as to what patient will be sent home on to check and see if Medicaid requires a pre-auth. CM contacted [facility] in [place] [phone] for Lovenox 80mg BID for 5 days cost to patient will be $3.00. Called RX into pharmacy they will fill once patient gets there to pick out hand. Patient may require a slide board to get in W/C . CM will re-evaluate after PT works with patient again tomorrow. CM will setup [employer] bus transportation home once discharged. CM will continue to follow and assist as needed with discharge planning / needs. DCP- Discharge Planning Updated by [email or web address]: Yany Lovett on 01/24/19 5:[address] Patient Name: AKHIL VILLALOBOS Admission Status: Elective Accout number: [id number] Admission Date: 01-23-2019 : 1985 Admission Diagnosis: Attending: MARK MANUEL Current LOS: 1 Anticipated DC Date: Planned Disposition: Primary Insurance: MEDICAID [place] Discharge Planning Comments: CM met with patient to complete initial dc planning assessment. CM educated patient on the CM role and verbal consent given by patient to complete assessment. Patient lives at home with her where she is independent with her care. At discharge patient plans to return home and feels this is a safe discharge. CM discussed availability of home health, rehab services, and medical equipment. Uncertain of DME needs will need wheelchair, BSC and uncertain past that point. Patient is going to need continued care at home family trying to decide where she is going to stay for a while. CM will need to check on transportation possibly with [employer] since patient can't bend leg. CM will continue to follow and will assist as needed with dc plans/needs. Registrar Museum: Yany Lovett DCPIA - Discharge Planning Initial Assessment Updated by [email or web address]: Yany Lovett on 01/25/19 3:45 pm * Is the patient Alert and Oriented? Yes * How many steps to enter\exit or inside your home? * PCP DR. RICKETTS * Pharmacy [facility] [phone] * Preadmission Environment Home with Family * ADLs Independent * List name and contact numbers for known caregivers / representatives who currently or will assist patient after discharge: JANAY CARBONE [facility] [phone] * Verbal permission to speak to the caregivers and representatives has been obtained from the patient. Yes * Additional services required to return to the preadmission environment? No * Can the patient safely return to the preadmission environment? Yes * Has this patient been hospitalized within the prior 30 days at any hospital? No Last DP export: 01/25/19 2:42 Patient Name: AKHIL VILLALOBOS Page [phone] at 7988 All edits/amendments must be made on the electronic document DICTATION DATE: 01/25/19 8174 SKETCH MAKER: LENORA 01/25/19 0774 RPT#: [id number] DC DATE: STATUS: ADM IN [facility] [address] [place] [address] END OF REPORT
--- NOTE | 2019-01-25 18:35 | NUR ---
0800: SEE FLOWSHEET FOR ASSESSMENT. 1050: DR. DING HERE. NEW ORDERS REC'D. 1400: DR. AN HERE. NEW ORDERS REC'D. 1550: ASSISSTED UP INTO WHEELCHAIR. R LEG ELEVATED. 1745: BACK TO BED WITH ASSISTANCE.
--- NOTE | 2019-01-25 19:30 | NUR ---
REPORT REC'D AND CARE ASSUMED, PT RESTING QUIETLY IN BED IN ON ROOM AIR, FAMILY AT BS, PT AWAKE, ALERT, AND ORIENTED X 4, PT COMPLAINS OF RIGHT KNEE PAIN RATING "8" ON 0-10 PAIN SCALE, ASSISTED PT TO REPOSITION FOR COMFORT, CM-ST @ 120, TEMP 99.0, ICE PACKS TO OPERATIVE LEG, GENERALIZED BRUISING NOTED TO CHEST, TORSO, ARMS AND LEGS, TOES ON RIGHT FOOT COLD TO TOUCH, PP WEAK, BED IN LOW POSITION, CALL LIGHT IN REACH.
--- NOTE | 2019-01-25 19:35 | NUR ---
ADDITIONAL DOSE OF OXY IR 5MG GIVEN PO ORDERED.
--- NOTE | 2019-01-25 19:55 | NUR ---
PT CRYING IN PAIN, STATES "MY KNEE HURTS SO BAD", EXTERNAL FIXATOR REMAINS IN PLACE, DRSG INTACT, PT FEELS PAIN MEDICATION NOT WORKING, ATTEMPTED TO CALL DR. DING AT THIS TIME.
--- NOTE | 2019-01-25 20:10 | NUR ---
CALLED DR. DING AGAIN, INFORMED BY SCRUB NURSE THAT HE WAS IN OR AT THIS TIME, PAGED DR. RODRIGEZ AT THIS TIME.
--- NOTE | 2019-01-25 20:15 | NUR ---
SPOKE WITH DR. RODRIGEZ, NEW ORDERS REC'D
--- NOTE | 2019-01-25 20:30 | NUR ---
25MG DEMEROL AND 4MG ZOFRAN GIVEN SLOW IVP VIA RIGHT HAND SALINE LOCK, PT COMPLAINS OF BURNING AT SITE, BUT STATES BURNING SETTLES DOWN AFTER A FEW MINUTES, BP STABLE, CM-SR @ 98, BP 110/61, HEPARIN INFUSING @ 1200 UNITS/HR TO LEFT FOREARM, WILL MONITOR CLOSELY FOR CHANGES.
--- NOTE | 2019-01-25 21:30 | NUR ---
PT RESTING QUIELTY WATCHING TV, VSS, REPORTS DEMEROL HELPED A GREAT DEAL, EVENING COLACE AND VISTARIL GIVEN PO ORDERED, PT DENIES FURTHER NEEDS.
--- NOTE | 2019-01-25 21:50 | NUR ---
PT ASSISTED ONTO FRACTURE MARES TO VOID, VOIDED 200CC YELLOW URINE, PT PERFORMED PERICARE INDEPENDENTLY, ASSISTED TO POSITION FOR COMFORT, BEDSIDE TABLE, AND CALL LIGHT IN REACH.
--- NOTE | 2019-01-25 23:00 | NUR ---
REASSESSMENT COMPLETED, PT TALKING ON CELL PHONE, DR. ALCALA PROVIDED ON REQUEST, TEMP DECREASED TO 98.2, ASSISTED PT TO REPOSITION PILLOWS UNDER RIGHT LEG AT THIS TIME, ICE PACKS REMOVED PER REQUEST.
[2019-01-26] VITALS (21 sets, daily range): BP systolic 102–134; BP diastolic 34–80
--- NOTE | 2019-01-26 00:45 | NUR ---
PT ASSISTED ONTO FRACTURE PAIN, VOIDED 200CC YELLOW URINE, PT ASSISTED TO REPOSITION FOR COMFORT, VSS
--- NOTE | 2019-01-26 01:10 | NUR ---
PT COMPLAINS OF MUSCLE SPASMS STARTING TO RIGHT LEG, 5MG VALIUM GIVEN SLOW IVP, BP STABLE, WILL MONITOR CLOSELY FOR CHANGES.
[2019-01-26 09:45] LABS: BASOPHILS 0.2 % (0-2); EOSINOPHILS 2.3 % (0-7); HEMATOCRIT 30.9 % (36.0-48.0); HEMOGLOBIN 9.9 g/dL (12-16); IMMATURE GRANULOCYTES 0.2 % (0-5); LYMPHOCYTES 35.2 % (15-50); MCH 29.3 pg (26.0-34.0); MCV 91.4 fL (80.0-100.0); MEAN PLATELET VOLUME 12.4 fL (7.4-10.4); MONOCYTES 8.2 % (2-11); NEUTROPHILS 53.9 % (40-80); RBC 3.38 10x6/uL (4.00-5.40); RDW 12.9 % (11.5-14.5); WBC 9.2 10x3/uL (4.8-10.8)
[2019-01-26 09:49] LABS: PLATELET COUNT 178 10x3/uL (130-400)
[2019-01-26 09:54] LABS: ALBUMIN 1.5 g/dL (3.4-5.0); ALKALINE PHOSPHATASE 61 U/L (46-116); ALT (SGPT) 57 U/L (10-68); BILIRUBIN - TOTAL 0.61 mg/dL (0.2-1.3); CALC OSMOLALITY 269 mosm/kg (275-300); CALCIUM 8.4 mg/dL (8.5-10.1); CARBON DIOXIDE 29.6 mmol/L (21.0-32.0); CHLORIDE - SERUM 104 mmol/L (98-107); CREATININE - SERUM 0.7 mg/dL (0.6-1.3); GLUCOSE 86 mg/dL (74-106); POTASSIUM - SERUM 3.7 mmol/L (3.5-5.1); PROTEIN - SERUM 6.2 g/dL (6.4-8.2); SODIUM 137 mmol/L (136-145); UREA NITROGEN 4 mg/dL (7-18); eGFR NON AFRICAN AMERICAN > 90 mL/min (90-120)
--- NOTE | 2019-01-26 17:30 | NUR ---
0740: REC'D AWAKE AND ALERT. SEE FLOWSHEET FOR ASSESSMENT. 0900: DR. DING HERE. R LEG UNWRAPPED AND PIN CARE DONE. 1000: DR. NÚÑEZ HERE. NEW ORDERS REC'D. 1220: UP TO WHEELCHAIR WITH ASSISTANCE X 4 1240: OFF UNIT IN WHEELCHAIR WITH SISTER. 1400: RETURN TO ROOM. 1430: BACK TO BED WITH ASSISTANCE X 4. 1630: RESTING WITH EYES CLOSED. NO DISTRESS NOTED. MOTHER AND SISTER AT BEDSIDE.
--- NOTE | 2019-01-26 19:00 | NUR ---
SHIFT ASSESSMENT COMPLETE. PT IS A&O X4 AND STATES THAT SHE HAS 7-8/10 LEG PAIN. REPOSITIONED LEG X2 ASSIST. FAMILY AT BEDSIDE. PERRLA, 3 MM, BRISK REACTION TO LIGHT. RR EVEN AND UNLABORED, CLEAR BREATH SOUNDS HEARD BILAT THROUGHOUT ALL LOBES. S1S2 AUDIBLE, HR 94 NSR SHOWING ON MONITOR. R HAND PIV S/L. L FA PIV INFUSING HEPARIN @ 1400 UN/HR (14 ML/HR). ABD FLAT, SOFT, HYPOACTIVE BS X4. R GROIN DRESSING CDI. R LEG IN EXT FIX, DERIK BANDAGE ON. PEDAL PULSE PRESENT. GENERALIZED BRUISING NOTED ON ALL EXT. REFRESHMENTS BROUGHT TO BEDSIDE. VSS. CALL LIGHT IN REACH, WILL CONT TO MONITOR.
--- NOTE | 2019-01-26 21:00 | NUR ---
PRN DEMEROL AND VISTARIL GIVEN D/T INCREASED PAIN AND ANXIETY. REPOSITIONED FOR COMFORT. MOTHER AND SISTER AT BEDSIDE. VSS. WILL CONT TO MONITOR CLOSELY.
--- NOTE | 2019-01-26 22:30 | NUR ---
PT IS HAVING BREAK-THROUGH PAIN, PRN OXYCODONE ADMIN. REPOSITIONED FOR COMFORT. WILL CONT WITH POC.
--- NOTE | 2019-01-26 23:00 | NUR ---
REASSESSMENT COMPLETE. NO CHANGES IN PT CONDITION. VSS. SEE FLOWSHEET FOR FURTHER DETAILS. CALL LIGHT IN REACH, SISTER AND MOTHER AT BEDSIDE. WILL CONT TO MONITOR CLOSELY.
--- NOTE | 2019-01-26 23:30 | NUR ---
INCREASED HEPARIN GTT BY 100 UN/HR PER PROTOCOL. SEE FLOWSHEET FOR FURTHER DETAILS.
[2019-01-27] VITALS (12 sets, daily range): BP systolic 104–115; BP diastolic 59–75
--- NOTE | 2019-01-27 01:00 | NUR ---
PT RESTING PEACEFULLY WITH NO SIGNS OF ACUTE DISTRESS NOTED. VSS. WILL CONT TO MONITOR CLOSELY.
--- NOTE | 2019-01-27 03:00 | NUR ---
REASSESSMENT COMPLETE. PRN DEMEROL AND VISTARIL ADMIN. D/C R HAND PIV D/T IRRITATION, CATH TIP INTACT. REPOSITIONED R LEG FOR COMFORT. VSS. NO FURTHER CHANGES AT THIS TIME. SISTER AT BEDSIDE. WILL CONT TO MONITOR CLOSELY.
--- NOTE | 2019-01-27 05:00 | NUR ---
I&O'S COLLECTED. PT RESTING PEACEFULLY. VSS. SISTER AT BEDSIDE. WILL CONT TO MONITOR CLOSELY.
--- NOTE | 2019-01-27 06:00 | NUR ---
CHG BATH PROVIDED. REPOSITIONED FOR COMFORT. 22G PIV STARTED TO R FA X 1 ATTEMPT. ANCEF INFUSING. PT TOLERATED WELL.
[2019-01-27 06:15] LABS: BASOPHILS 0.4 % (0-2); EOSINOPHILS 2.6 % (0-7); HEMATOCRIT 32.2 % (36.0-48.0); HEMOGLOBIN 10.6 g/dL (12-16); IMMATURE GRANULOCYTES 0.4 % (0-5); LYMPHOCYTES 19.6 % (15-50); MCH 29.5 pg (26.0-34.0); MCHC 32.9 g/dL (31.0-37.0); MCV 89.7 fL (80.0-100.0); MEAN PLATELET VOLUME 11.6 fL (7.4-10.4); MONOCYTES 8.8 % (2-11); NEUTROPHILS 68.2 % (40-80); PLATELET COUNT 189 10x3/uL (130-400); RBC 3.59 10x6/uL (4.00-5.40); RDW 12.8 % (11.5-14.5); WBC 9.7 10x3/uL (4.8-10.8)
[2019-01-27 06:24] LABS: ALKALINE PHOSPHATASE 96 U/L (46-116); CALC OSMOLALITY 268 mosm/kg (275-300); CALCIUM 8.5 mg/dL (8.5-10.1); CARBON DIOXIDE 27.5 mmol/L (21.0-32.0); CHLORIDE - SERUM 102 mmol/L (98-107); CREATININE - SERUM 0.6 mg/dL (0.6-1.3); GLUCOSE 128 mg/dL (74-106); POTASSIUM - SERUM 3.8 mmol/L (3.5-5.1); PROTEIN - SERUM 6.7 g/dL (6.4-8.2); SODIUM 135 mmol/L (136-145); UREA NITROGEN 5 mg/dL (7-18); eGFR NON AFRICAN AMERICAN > 90 mL/min (90-120)
[2019-01-27 06:25] LABS: ALBUMIN 2.7 g/dL (3.4-5.0); ALT (SGPT) 128 U/L (10-68)
--- NOTE | 2019-01-27 19:00 | NUR ---
RECEIVED PATIENT IN BED, AWAKE ALERT AND ORIENTED X 4. FAMILY AT BEDSIDE. SHIFT ASSESSMENT COMPLETED PER FLOW SHEET WITH NO ACUTE DISTRESS OBSERVED. CALL LIGHT IN REACH AND ABLE TO UTILIZE TO MAKE NEEDS KNOWN.
[2019-01-28 03:00] VITALS: BP 100/62
[2019-01-28 06:33] LABS: BASOPHILS 0.6 % (0-2); EOSINOPHILS 2.8 % (0-7); HEMATOCRIT 34.4 % (36.0-48.0); HEMOGLOBIN 11.6 g/dL (12-16); IMMATURE GRANULOCYTES 0.7 % (0-5); LYMPHOCYTES 26.1 % (15-50); MCH 30.2 pg (26.0-34.0); MCHC 33.7 g/dL (31.0-37.0); MCV 89.6 fL (80.0-100.0); MEAN PLATELET VOLUME 11.9 fL (7.4-10.4); MONOCYTES 9.1 % (2-11); NEUTROPHILS 60.7 % (40-80); PLATELET COUNT 186 10x3/uL (130-400); RBC 3.84 10x6/uL (4.00-5.40); RDW 13.2 % (11.5-14.5); WBC 10.2 10x3/uL (4.8-10.8)
[2019-01-28 07:00] VITALS: BP 106/65
--- NOTE | 2019-01-28 07:30 | NUR ---
PATIENT AMBULATED TO WHEELCHAIR.
--- NOTE | 2019-01-28 07:30 | NUR ---
AMBULATED PATIENT TO WHEELCHAIR PER PATIENT REQUEST. ASSESSMENT DONE AT THIS TIME. NO DISTRESS. VSS. WILL CONTINUE TO MONITOR PATIENT.
[2019-01-28 07:37] LABS: ALBUMIN 2.9 g/dL (3.4-5.0); ALKALINE PHOSPHATASE 122 U/L (46-116); BILIRUBIN - TOTAL 0.87 mg/dL (0.2-1.3); CALC OSMOLALITY 268 mosm/kg (275-300); CALCIUM 8.5 mg/dL (8.5-10.1); CARBON DIOXIDE 27.5 mmol/L (21.0-32.0); CHLORIDE - SERUM 101 mmol/L (98-107); CREATININE - SERUM 0.5 mg/dL (0.6-1.3); GLUCOSE 93 mg/dL (74-106); PROTEIN - SERUM 6.4 g/dL (6.4-8.2); SODIUM 136 mmol/L (136-145); UREA NITROGEN 5 mg/dL (7-18); eGFR NON AFRICAN AMERICAN > 90 mL/min (90-120)
[2019-01-28 07:40] LABS: ALT (SGPT) 163 U/L (10-68); POTASSIUM - SERUM 4.6 mmol/L (3.5-5.1)
[2019-01-28 11:00] VITALS: BP 101/60
--- NOTE | 2019-01-28 11:06 | NUR ---
PIN CARE DONE BY MOTHER NORM WEN.
[2019-01-28 15:00] VITALS: BP 103/72
--- NOTE | 2019-01-28 15:25 | NUR ---
PATIENT RESTING. EASILY AROUSED. SEE ADL'S.
--- NOTE | 2019-01-28 17:52 | NUR ---
PATIENT AMBULATED TO AND FROM CHAIR TO WHEELCHAIR WITH PARTIAL ASSISTANCE. NO DISTRESS. VSS. PATIENT IS ALERT AND ORIENTED. MULTIPLE VOIDS. NO BM. PAIN MEDS GIVEN PER MAR. COMFORT MEASURES FOR R LEG. PATIENT AMBULATED WITH PHYSICAL THERAPY LEARNING HOW TO GET OUT OF WHEELCHAIR BY HERSELF WITH MINIMAL ASSITANCE. PATIENT DID NOT EAT MEALS DUE TO DECREASE IN APPETITE. FAMILY AT BEDSIDE. PIN CARE DONE BY MOTHER RN --OBSERVED DURING THIS TIME. WILL CONTINUE TO MONITOR
[2019-01-28 19:00] VITALS: BP 104/67
--- NOTE | 2019-01-28 19:00 | NUR ---
SHIFT ASSESSMENT COMPLETE. PT IS UP IN WHEELCHAIR AND IS IN GOOD SPIRITS. A&O X4, PERRLA, 3 MM, BRISK REACTION TO LIGHT. RR EVEN AND UNLABORED, CLEAR BREATH SOUNDS HEARD BILAT THROUGHOUT ALL LOBES. S1S2 AUDIBLE. ABD FLAT AND SOFT, BS ACTIVE X4. L FA PIV INFUSING HEPARIN @ 1500 UNITS/HR (15 ML/HR). GENERALIZED BRUISING NOTED ON UPPER AND LOWER EXT WELL CHEST. R GROIN DRESSING CDI. R LEG EXT FIXATOR AND DERIK BANDAGE IN PLACE. RADIAL AND PEDAL PULSES PALP. MOTHER AT BEDSIDE. NO FURTHER NEEDS AT THIS TIME. WILL CONT TO MONITOR CLOSELY.
--- NOTE | 2019-01-28 19:30 | NUR ---
PIN CARE PROVIDED. DERIK BANDAGE APPLIED TO R LEG. PT TOLERATED WELL. WILL CONT WITH POC.
--- NOTE | 2019-01-28 20:30 | NUR ---
PM MEDS TAKEN WITHOUT DIFFICULTY. PRN OXYCODONE ADMIN FOR PAIN OF 6/10. REFRESHMENTS BROUGHT TO BEDSIDE.
--- NOTE | 2019-01-28 22:00 | NUR ---
PT XFER TO BED X2 ASSIST. PT WAS ABLE TO DO MOST OF THE WORK HERSELF. REPOSITIONED FOR COMFORT. PT EATING DINNER. CALL LIGHT IN REACH.
[2019-01-28 23:00] VITALS: BP 103/75
--- NOTE | 2019-01-28 23:00 | NUR ---
PT RESTING PEACEFULLY WITH NO SIGNS OF ACUTE DISTRESS NOTED. VSS. WILL CONT WITH POC.
--- NOTE | 2019-01-29 01:00 | NUR ---
PT RESTING PEACEFULLY WITH NO SIGNS OF ACUTE DISTRESS NOTED. CALL LIGHT IN REACH, MOTHER AT BEDSIDE. WILL CONT WITH POC.
[2019-01-29 03:00] VITALS: BP 107/65
--- NOTE | 2019-01-29 03:00 | NUR ---
ASSISTED PT OFF BED MARES. 400 ML CONCENTRATED URINE COLLECTED. REPOSITIONED FOR COMFORT. NO FURTHER NEEDS AT THIS TIME. WILL CONT WITH POC. MOTHER AT BEDSIDE.
--- NOTE | 2019-01-29 05:00 | NUR ---
PT RESTING PEACEFULLY WITH MOTHER AT BEDSIDE. WILL CONT CLOSE MONITORING.
[2019-01-29 07:30] LABS: BASOPHILS 0.5 % (0-2); HEMATOCRIT 35.2 % (36.0-48.0); HEMOGLOBIN 11.6 g/dL (12-16); IMMATURE GRANULOCYTES 0.8 % (0-5); LYMPHOCYTES 22.3 % (15-50); MCH 29.9 pg (26.0-34.0); MCV 90.7 fL (80.0-100.0); MEAN PLATELET VOLUME 11.7 fL (7.4-10.4); MONOCYTES 8.7 % (2-11); NEUTROPHILS 64.7 % (40-80); PLATELET COUNT 214 10x3/uL (130-400); RBC 3.88 10x6/uL (4.00-5.40); RDW 13.5 % (11.5-14.5); WBC 10.4 10x3/uL (4.8-10.8)
[2019-01-29 07:36] LABS: ALBUMIN 2.9 g/dL (3.4-5.0); ALKALINE PHOSPHATASE 126 U/L (46-116); ALT (SGPT) 154 U/L (10-68); BILIRUBIN - TOTAL 0.77 mg/dL (0.2-1.3); CALCIUM 9.1 mg/dL (8.5-10.1); CARBON DIOXIDE 28.6 mmol/L (21.0-32.0); CHLORIDE - SERUM 100 mmol/L (98-107); GLUCOSE 101 mg/dL (74-106); POTASSIUM - SERUM 4.2 mmol/L (3.5-5.1); PROTEIN - SERUM 7.3 g/dL (6.4-8.2); SODIUM 135 mmol/L (136-145)
[2019-01-29 07:37] LABS: CALC OSMOLALITY 267 mosm/kg (275-300); CREATININE - SERUM 0.7 mg/dL (0.6-1.3); UREA NITROGEN 7 mg/dL (7-18); eGFR NON AFRICAN AMERICAN > 90 mL/min (90-120)
--- NOTE | 2019-01-29 07:53 | NUR ---
REPORT RECEIVED. DR DING HAS BEEN BY. SPOKE WITH PT AND MOM ABOUT PROGRESS AND PAIN AT UPPER PIN. ENCOURAGED PHYSICAL THERAPY. DISCUSSED GOING HOME. PT CURRENTLY ON BEDSIDE COMMODE. TRANSFERED SELF WITH ONLY ASSIST TO STABILIZE LEG ON SOMETHING ONCE GOT TO COMMODE. COAG RESULTS CAME BACK IN RANGE, NO CHANGE TO HEPARIN GTT PER ORDER.
[2019-01-29 09:00] VITALS: BP 112/73
--- NOTE | 2019-01-29 09:09 | NUR ---
PT HAS BEEN OFF UNIT, NOW RETURNED. IN WHEELCHAIR AT BEDSIDE. MORNING MEDICATIONS HAVE BEEN PROVIDED. PT WANTING TO GO BACK TO BED. ENCOURAGED TO WAIT UNTIL AFTER PHYSICAL THERAPY.
--- NOTE | 2019-01-29 10:04 | NUR ---
PT ON BEDSIDE COMMODE. TRYING TO HAVE BM
--- NOTE | 2019-01-29 10:30 | NUR ---
physical therapist has been by to see patient.
[2019-01-29 10:54] VITALS: Ht 170.2 cm; Wt 88.0 kg
--- NOTE | 2019-01-29 11:28 | MORECARE ---
CASE MANAGEMENT DISCHARGE SUMMARY PATIENT: AKHIL VILLALOBOS UNIT: [id number] ADM DATE: 01/23/19 AGE: 33 : [birth year] SEX: F ROOM/BED: D.[facility] AUTHOR: NIALL,DOC PHYSICIAN: REFERRING PHYSICIAN: MARK MANUEL MD DATE OF SERVICE: 01/29/19 Discharge Plan Patient Name: AKHIL VILLALOBOS Facility: [facility]:[place] : 1985 Planned Disposition: Anticipated Discharge Date: Discharge Date: Expected LOS: Initial Reviewer: [email or web address] Initial Review Date: 01/24/2019 Generated: 01/29/19 12:28 pm Comments DCP- Discharge Planning Updated by [email or web address]: Jane Juan on 01/29/19 10:[address] Patient Name: AKHIL VILLALOBOS Admission Status: Elective Accout number: [id number] Admission Date: 01-23-2019 : 1985 Admission Diagnosis: Attending: MARK MANUEL Current LOS: 6 Anticipated DC Date: Planned Disposition: Primary Insurance: [place]ID [place] Discharge Planning Comments: CM SPOKE WITH ARLEN AT [facility] AND THEY CAN'T SEE THE PATIENT UNTIL MONDAY. CM WILL CALL PATIENT NURSE AND WAITING TO TALK TO HER MOM. CM TO FOLLOW. Dormitory Keeper: Jane Juan DCP- Discharge Planning Updated by [email or web address]: Yany Lovett on 01/25/19 2:[address] CM spoke with patient and mother Cambria regarding d/c needs. [facility] signed for [facility], and personal care. CM contacted Savi with [facility] [phone] for wheelchair with leg extension, and bedside commode to deliver to patients room today. Home Health with [facility] spoke with Jagjit and he gave CM information for LR unit to contact Aishwarya [phone] fax [phone]. CM faxed over orders and records. CM spoke with [facility] regarding care givers and Medicaid benefits. Patient qualifies for 14.5hrs weekly of in home care. CM faxed records to Antonella and notified her that patient will likely discharge on Monday. CM got order for Lovenox injections per Dr. Washington as to what patient will be sent home on to check and see if Medicaid requires a pre-auth. CM contacted [facility] in [place] [phone] for Lovenox 80mg BID for 5 days cost to patient will be $3.00. Called RX into pharmacy they will fill once patient gets there to picker operator. Patient may require a slide board to get in W/C . CM will re-evaluate after PT works with patient again tomorrow. CM will setup [facility] bus transportation home once discharged. CM will continue to follow and assist as needed with discharge planning / needs. DCP- Discharge Planning Updated by [email or web address]: Yany Lovett on 01/24/19 5:[address] Patient Name: AKHIL VILLALOBOS Admission Status: Elective Accout number: [id number] Admission Date: 01-23-2019 : 1985 Admission Diagnosis: Attending: MARK MANUEL Current LOS: 1 Anticipated DC Date: Planned Disposition: Primary Insurance: MED[place]ID [place] Discharge Planning Comments: CM met with patient to complete initial dc planning assessment. CM educated patient on the CM role and verbal consent given by patient to complete assessment. Patient lives at home with her where she is independent with her care. At discharge patient plans to return home and feels this is a safe discharge. CM discussed availability of home health, rehab services, and medical equipment. Uncertain of DME needs will need wheelchair, BSC and uncertain past that point. Patient is going to need continued care at home family trying to decide where she is going to stay for a while. CM will need to check on transportation possibly with [employer] since patient can't bend leg. CM will continue to follow and will assist as needed with dc plans/needs. Dormitory Keeper: Yany Lovett DCPIA - Discharge Planning Initial Assessment Updated by [email or web address]: Yany Lovett on 01/25/19 3:45 pm * Is the patient Alert and Oriented? Yes * How many steps to enter\exit or inside your home? * PCP DR. RICKETTS * Pharmacy [facility] [phone] * Preadmission Environment Home with Family * ADLs Independent * List name and contact numbers for known caregivers / representatives who currently or will assist patient after discharge: NORM CARBONE - MOTHER - [phone] * Verbal permission to speak to the caregivers and representatives has been obtained from the patient. Yes * Additional services required to return to the preadmission environment? No * Can the patient safely return to the preadmission environment? Yes * Has this patient been hospitalized within the prior 30 days at any hospital? No Last DP export: 01/25/19 2:55 Patient Name: AKHIL VILLALOBOS Page [id number] at 1128 All edits/amendments must be made on the electronic document DICTATION DATE: 01/29/191126 WAVE SOLDERING MACHINE OPERATOR: LENORA 01/29/191126 RPT#: [id number] DC DATE: STATUS: ADM IN [facility] [address] [place] [address] END OF REPORT
--- NOTE | 2019-01-29 12:05 | NUR ---
PT OFF UNIT WITH SISTER AT THIS TIME.
--- NOTE | 2019-01-29 12:24 | MORECARE ---
CASE MANAGEMENT DISCHARGE SUMMARY PATIENT: AKHIL VILLALOBOS UNIT: [id number] ADM DATE: 01/23/19 AGE: 33 : 87 SEX: F ROOM/BED: D.08 AUTHOR: NIALLDOC PHYSICIAN: REFERRING PHYSICIAN: MARK MANUEL MD DATE OF SERVICE: 01/29/19 Discharge Plan Patient Name: AKHIL VILLALOBOS Facility: [facility]:[place] : 1985 Planned Disposition: Anticipated Discharge Date: Discharge Date: Expected LOS: Initial Reviewer: [email or web address] Initial Review Date: 01/24/2019 Generated: 01/29/19 1:23 pm Comments DCP- Discharge Planning Updated by [email or web address]: Jane Juan on 01/29/19 11:[address] Patient Name: AKHIL VILLALOBOS Admission Status: Elective Accout number: [id number] Admission Date: 01-23-2019 : 1985 Admission Diagnosis: Attending: MARK MANUEL Current LOS: 6 Anticipated DC Date: Planned Disposition: Primary Insurance: MEDICAID [place] Discharge Planning Comments: CM SPOKE WITH JANAY, PATIENT'S MOM, AND PLAN TO DC TO HOME TODAY. [facility] WILL SEE HER MONDAY. I'M WAITING FOR [facility] TO CALL ME BACK TO SEE THE START DATE FOR PERSONAL CARE. [facility] PHONE IS [phone]. [facility] PHONE IS [phone] ZAY. HAS HER EQUIPMENT ALREADY. MEDICATIONS TO BE SENT TO [facility] [address] AND [facility] IN CASE HER USUAL PHARMACY IS CLOSED BEFORE THEY CAN GET THERE. CM WILL FOLLOW AND ASSIST NEEDED. Plaster Helper: Jane Juan DCP- Discharge Planning Updated by [email or web address]: Jane Juan on 01/29/19 10:[address] Patient Name: AKHIL VILLALOBOS Admission Status: Elective Accout number: [id number] Admission Date: 01-23-2019 : 1985 Admission Diagnosis: Attending: MARK MANUEL Current LOS: 6 Anticipated DC Date: Planned Disposition: Primary Insurance: MEDICAID [place] Discharge Planning Comments: CM SPOKE WITH ARLEN AT [facility] AND THEY CAN'T SEE THE PATIENT UNTIL MONDAY. CM WILL CALL PATIENT NURSE AND WAITING TO TALK TO HER MOM. CM TO FOLLOW. Plaster Helper: Jane Juan DCP- Discharge Planning Updated by [email or web address]: Yany Dickersonr on 01/25/19 2:[address] CM spoke with patient and mother Janay regarding d/c needs. [facility] signed for DME, HH and personal care. CM contacted Savi with [facility] [phone] for wheelchair with leg extension, and bedside commode to deliver to patients room today. Home Health with [facility] spoke with Jajgit and he gave CM information for LR unit to contact Aishwarya [phone] fax [phone]. CM faxed over orders and records. CM spoke with [place] @ [facility] regarding care givers and Medicaid benefits. Patient qualifies for 14.5hrs weekly of in home care. CM faxed records to [place] and notified her that patient will likely discharge on Monday. CM got order for Lovenox injections per Dr. Washington as to what patient will be sent home on to check and see if Medicaid requires a pre-auth. CM contacted [facility] in [place] [phone] for Lovenox 80mg BID for 5 days cost to patient will be $3.00. Called RX into pharmacy they will fill once patient gets there to chicken picker. Patient may require a slide board to get in W/C . CM will re-evaluate after PT works with patient again tomorrow. CM will setup [employer] bus transportation home once discharged. CM will continue to follow and assist as needed with discharge planning / needs. DCP- Discharge Planning Updated by [email or web address]: Yany Lovett on 01/24/19 5:[address] Patient Name: AKHIL VILLALOBOS Admission Status: Elective Accout number: [id number] Admission Date: 01-23-2019 : 1985 Admission Diagnosis: Attending: MARK MANUEL Current LOS: 1 Anticipated DC Date: Planned Disposition: Primary Insurance: MEDICAID [place] Discharge Planning Comments: CM met with patient to complete initial dc planning assessment. CM educated patient on the CM role and verbal consent given by patient to complete assessment. Patient lives at home with her where she is independent with her care. At discharge patient plans to return home and feels this is a safe discharge. CM discussed availability of home health, rehab services, and medical equipment. Uncertain of DME needs will need wheelchair, BSC and uncertain past that point. Patient is going to need continued care at home family trying to decide where she is going to stay for a while. CM will need to check on transportation possibly with [employer] since patient can't bend leg. CM will continue to follow and will assist as needed with dc plans/needs. Plaster Helper: Yany Lovett DCPIA - Discharge Planning Initial Assessment Updated by [email or web address]: Yany Lovett on 01/25/19 3:45 pm * Is the patient Alert and Oriented? Yes * How many steps to enter\exit or inside your home? * PCP DR. RICKETTS * Pharmacy [facility] [phone] * Preadmission Environment Home with Family * ADLs Independent * List name and contact numbers for known caregivers / representatives who currently or will assist patient after discharge: JANAY BASURTO [phone] * Verbal permission to speak to the caregivers and representatives has been obtained from the patient. Yes * Additional services required to return to the preadmission environment? No * Can the patient safely return to the preadmission environment? Yes * Has this patient been hospitalized within the prior 30 days at any hospital? No Last DP export: 01/29/19 10:28 Patient Name: AKHIL VILLALOBOS Page [id number] at 1224 All edits/amendments must be made on the electronic document DICTATION DATE: 01/29/191222 SUPERVISOR HIDE HOUSE: LENORA 01/29/191222 RPT#: [id number] DC DATE: STATUS: ADM IN [facility] [address] [place] [address] END OF REPORT
--- NOTE | 2019-01-29 12:38 | NUR ---
PT RETURNED TO ROOM
--- NOTE | 2019-01-29 12:57 | NUR ---
PT ASSISTED FROM WHEELCHAIR TO BED. RESTING COMFORTABLY AT THIS TIME. CALL LIGHT IN REACH. FAMILY AT BEDSIDE.
--- NOTE | 2019-01-29 14:32 | NUR ---
called dr saleh office. plans for f/u visit on monday02/06/19 at 11:00
--- NOTE | 2019-01-29 14:45 | MORECARE ---
CASE MANAGEMENT DISCHARGE SUMMARY PATIENT: AKHIL VILLALOBOS UNIT: [id number] ADM DATE: 01/23/19 AGE: 33 : [birth year] SEX: F ROOM/BED: D.08 AUTHOR: NIALL,DOC PHYSICIAN: REFERRING PHYSICIAN: MARK MANUEL MD DATE OF SERVICE: 01/29/19 Discharge Plan Patient Name: AKHIL VILLALOBOS Facility: [facility]:[place] : 1985 Planned Disposition: Anticipated Discharge Date: Discharge Date: Expected LOS: Initial Reviewer: [email or web address] Initial Review Date: 01/24/2019 Generated: 01/29/19 3:45 pm Comments DCP- Discharge Planning Updated by [id number]: Jane Juan on 01/29/19 1:[address] Patient Name: AKHIL VILLALOBOS Admission Status: Elective Accout number: [id number] Admission Date: 01-23-2019 : 1985 Admission Diagnosis: Attending: MARK MANUEL Current LOS: 6 Anticipated DC Date: Planned Disposition: Primary Insurance: MED[place]ID [place] Discharge Planning Comments: CM SPOKE WITH JANAY, PATIENT'S MOM, AND PLAN TO DC TO HOME TODAY. [facility] WILL SEE HER MONDAY. I'M WAITING FOR [facility] TO CALL ME BACK TO SEE THE START DATE FOR PERSONAL CARE. [facility] PHONE IS [phone]. [facility] PHONE IS [phone] ZAY. HAS HER EQUIPMENT ALREADY. MEDICATIONS TO BE SENT TO [facility] [address] AND [facility] IN CASE HER USUAL PHARMACY IS CLOSED BEFORE THEY CAN GET THERE. CM WILL FOLLOW AND ASSIST NEEDED. Campaign Director: Jane Juan Appended by Jane Juan on 01/29/2019 14:42 CDT: SPOKE TO [facility] AND WAITING FOR CALL BACK TO VERIFY THEY ARE SEEING THE PATIENT. DCP- Discharge Planning Updated by [id number]: Jane Juan on 01/29/19 10:[address] Patient Name: AKHIL VILLALOBOS Admission Status: Elective Accout number: [id number] Admission Date: 01-23-2019 : 1985 Admission Diagnosis: Attending: MARK MANUEL Current LOS: 6 Anticipated DC Date: Planned Disposition: Primary Insurance: MED[place]ID [place] Discharge Planning Comments: CM SPOKE WITH ARLEN AT [facility] AND THEY CAN'T SEE THE PATIENT UNTIL MONDAY. CM WILL CALL PATIENT NURSE AND WAITING TO TALK TO HER MOM. CM TO FOLLOW. Campaign Director: Jane Juan DCP- Discharge Planning Updated by [id number]: Yany Lovett on 01/25/19 2:[address] CM spoke with patient and mother Janay regarding d/c needs. [facility] signed for [facility], and personal care. CM contacted Savi with [facility] [phone] for wheelchair with leg extension, and bedside commode to deliver to patients room today. [facility] with [facility] spoke with Jagjit and he gave CM information for LR unit to contact Aishwarya [phone] fax [phone]. CM faxed over orders and records. CM spoke with [place] @ [facility] regarding care givers and Medicaid benefits. Patient qualifies for 14.5hrs weekly of in home care. CM faxed records to [place] and notified her that patient will likely discharge on Monday. CM got order for Lovenox injections per Dr. Washington as to what patient will be sent home on to check and see if Medicaid requires a pre-auth. CM contacted [facility] in [place] [phone] for Lovenox 80mg BID for 5 days cost to patient will be $3.00. Called RX into pharmacy they will fill once patient gets there to brick picker. Patient may require a slide board to get in W/C . CM will re-evaluate after PT works with patient again tomorrow. CM will setup [employer] bus transportation home once discharged. CM will continue to follow and assist as needed with discharge planning / needs. DCP- Discharge Planning Updated by [id number]: Yany Lovett on 01/24/19 5:[address] Patient Name: AKHIL VILLALOBOS Admission Status: Elective Accout number: [id number] Admission Date: 01-23-2019 : 1985 Admission Diagnosis: Attending: MARK MANUEL Current LOS: 1 Anticipated DC Date: Planned Disposition: Primary Insurance: MEDICAID [place] Discharge Planning Comments: CM met with patient to complete initial dc planning assessment. CM educated patient on the CM role and verbal consent given by patient to complete assessment. Patient lives at home with her where she is independent with her care. At discharge patient plans to return home and feels this is a safe discharge. CM discussed availability of home health, rehab services, and medical equipment. Uncertain of DME needs will need wheelchair, BSC and uncertain past that point. Patient is going to need continued care at home family trying to decide where she is going to stay for a while. CM will need to check on transportation possibly with [employer] since patient can't bend leg. CM will continue to follow and will assist as needed with dc plans/needs. Campaign Director: Yany Lovett DCPIA - Discharge Planning Initial Assessment Updated by [email or web address]: Yany Lovett on 01/25/19 3:45 pm * Is the patient Alert and Oriented? Yes * How many steps to enter\exit or inside your home? * PCP DR. RICKETTS * Pharmacy [facility] [phone] * Preadmission Environment Home with Family * ADLs Independent * List name and contact numbers for known caregivers / representatives who currently or will assist patient after discharge: JANAY CARBONE - [facility] - [phone] * Verbal permission to speak to the caregivers and representatives has been obtained from the patient. Yes * Additional services required to return to the preadmission environment? No * Can the patient safely return to the preadmission environment? Yes * Has this patient been hospitalized within the prior 30 days at any hospital? No Last DP export: 01/29/19 11:24 Patient Name: AKHIL VILLALOBOS Page [id number] at 1445 All edits/amendments must be made on the electronic document DICTATION DATE: 01/29/19 1443 DUST COLLECTOR TREATER: LENORA 01/29/19 1445 RPT#: [id number] DC DATE: STATUS: ADM IN [facility] [address] [place] [address] END OF REPORT
--- NOTE | 2019-01-29 14:49 | NUR ---
dr julien called and notified plan of discharge today. needs lovenox and floragen orders for pt to go home on.
--- NOTE | 2019-01-29 14:50 | NUR ---
have written prescriptions from dr saleh for: zofran 4mg po qid prn, oxycodone 5mg po q6h prn pain, vistaril 50mg po q6h prn anxiety and keflex 500mg po tid. copies made and placed on chart.
[2019-01-29] MEDS ORDERED: Keflex PO (14:53)
[2019-01-29] MEDS ORDERED: ASPIRIN81 MG PO (14:54)
[2019-01-29] MEDS ORDERED: oxyCODONE IR PO (14:54)
[2019-01-29] MEDS ORDERED: LOVENOX60 MG/0.6 SC (14:54)
--- NOTE | 2019-01-29 17:04 | NUR ---
DISCHARGE TEACHING HAS BEEN PROVIDED TO PT AND MOM. UNDERSTAND PLAN FOR FOLLOW UP. PIV TO LEFT FOREARM REMOVED, TIP INTACT.
--- NOTE | 2019-01-30 09:46 | MORECARE ---
CASE MANAGEMENT DISCHARGE SUMMARY PATIENT: AKHIL VILLALOBOS UNIT: [id number] ADM DATE: 01/23/19 AGE: 33 : 87 SEX: F ROOM/BED: D.08 AUTHOR: NIALL,DOC PHYSICIAN: REFERRING PHYSICIAN: MARK MANUEL MD DATE OF SERVICE: 01/30/19 Discharge Plan Patient Name: AKHIL VILLALOBOS Facility: [facility]:[place] : 1985 Planned Disposition: Anticipated Discharge Date: Discharge Date: 01/29/2019 Expected LOS: Initial Reviewer: [id number] Initial Review Date: 01/24/2019 Generated: 01/30/19 10:46 am Comments DCP- Discharge Planning Updated by [email or web address]: Jane Juan on 01/29/19 1:[address] Patient Name: AKHIL VILLALOBOS Admission Status: Elective Accout number: [id number] Admission Date: 01-23-2019 : 1985 Admission Diagnosis: Attending: MARK MANUEL Current LOS: 6 Anticipated DC Date: Planned Disposition: Primary Insurance: MEDICAID [place] Discharge Planning Comments: CM SPOKE WITH JANAY, PATIENT'S MOM, AND PLAN TO DC TO HOME TODAY. [facility] WILL SEE HER MONDAY. I'M WAITING FOR [facility] TO CALL ME BACK TO SEE THE START DATE FOR PERSONAL CARE. [facility] PHONE IS [phone]. [facility] PHONE IS [phone] ZAY. HAS HER EQUIPMENT ALREADY. MEDICATIONS TO BE SENT TO [facility] [address] AND [facility] IN CASE HER USUAL PHARMACY IS CLOSED BEFORE THEY CAN GET THERE. CM WILL FOLLOW AND ASSIST NEEDED. Pattern Vault Clerk: Jane Juan Appended by Jane Juan on 01/29/2019 14:42 CDT: SPOKE TO [facility] AND WAITING FOR CALL BACK TO VERIFY THEY ARE SEEING THE PATIENT. DCP- Discharge Planning Updated by [id number]: Jane Juan on 01/29/19 10:[address] Patient Name: AKHIL VILLALOBOS Admission Status: Elective Accout number: [id number] Admission Date: 01-23-2019 : 1985 Admission Diagnosis: Attending: MARK MANUEL Current LOS: 6 Anticipated DC Date: Planned Disposition: Primary Insurance: [place]ID [place] Discharge Planning Comments: CM SPOKE WITH ARLEN AT [facility] AND THEY CAN'T SEE THE PATIENT UNTIL MONDAY. CM WILL CALL PATIENT NURSE AND WAITING TO TALK TO HER MOM. CM TO FOLLOW. Pattern Vault Clerk: Jane Juan DCP- Discharge Planning Updated by [email or web address]: Yany Lovett on 01/25/19 2:[address] CM spoke with patient and mother Janay regarding d/c needs. LEN signed for [facility], and personal care. CM contacted Savi with [facility] [phone] for wheelchair with leg extension, and bedside commode to deliver to patients room today. Home [facility] with [facility] spoke with Jagjit and he gave CM information for LR unit to contact Aishwarya [phone] fax [phone]. CM faxed over orders and records. CM spoke with [place] @ [facility] regarding care givers and Medicaid benefits. Patient qualifies for 14.5hrs weekly of in home care. CM faxed records to Washington and notified her that patient will likely discharge on Monday. CM got order for Lovenox injections per Dr. [place] as to what patient will be sent home on to check and see if Medicaid requires a pre-auth. CM contacted [facility] in [place] [phone] for Lovenox 80mg BID for 5 days cost to patient will be $3.00. Called RX into pharmacy they will fill once patient gets there to mushroom picker. Patient may require a slide board to get in W/C . CM will re-evaluate after PT works with patient again tomorrow. CM will setup [facility] bus transportation home once discharged. CM will continue to follow and assist as needed with discharge planning / needs. DCP- Discharge Planning Updated by [email or web address]: Yany Lovett on 01/24/19 5:[address] Patient Name: AKHIL VILLALOBOS Admission Status: Elective Accout number: [id number] Admission Date: 01-23-2019 : 1985 Admission Diagnosis: Attending: MARK MANUEL Current LOS: 1 Anticipated DC Date: Planned Disposition: Primary Insurance: [place]ID [place] Discharge Planning Comments: CM met with patient to complete initial dc planning assessment. CM educated patient on the CM role and verbal consent given by patient to complete assessment. Patient lives at home with her where she is independent with her care. At discharge patient plans to return home and feels this is a safe discharge. CM discussed availability of home health, rehab services, and medical equipment. Uncertain of DME needs will need wheelchair, BSC and uncertain past that point. Patient is going to need continued care at home family trying to decide where she is going to stay for a while. CM will need to check on transportation possibly with [employer] since patient can't bend leg. CM will continue to follow and will assist as needed with dc plans/needs. Pattern Vault Clerk: Yany Lovett DCPIA - Discharge Planning Initial Assessment Updated by [email or web address]: Yany Lovett on 01/25/19 3:45 pm * Is the patient Alert and Oriented? Yes * How many steps to enter\exit or inside your home? * PCP DR. RICKETTS * Pharmacy [facility] [phone] * Preadmission Environment Home with Family * ADLs Independent * List name and contact numbers for known caregivers / representatives who currently or will assist patient after discharge: JANAY [facility] [phone] * Verbal permission to speak to the caregivers and representatives has been obtained from the patient. Yes * Additional services required to return to the preadmission environment? No * Can the patient safely return to the preadmission environment? Yes * Has this patient been hospitalized within the prior 30 days at any hospital? No Last DP export: 01/29/19 1:45 Patient Name: AKHIL VILLALOBOS Page [id number] at 0946 All edits/amendments must be made on the electronic document DICTATION DATE: 01/30/19944 FAUCET POLISHER: LENORA 01/30/19944 RPT#: [id number] DC DATE:01/29/19 STATUS: DIS IN [facility] [address] [place] [address] END OF REPORT
[2019-02-06] MEDS ORDERED: ZOFRAN4 MG PO (14:59)
[2019-02-06] MEDS ORDERED: VISTARIL25 MG PO (15:01)
[2019-02-06] MEDS ORDERED: PROBIOTIC1 EAC1 PO (15:01)
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
== END 2019-01-29 17:24 | disposition home health service (06) | DRG 492 ==
LOC: D.CVICU 15:00
PROVIDERS: Orthopaedic Surgery; Radiology Diagnostic Radiology; Surgery; ADMIT Surgery; ATTEND Surgery
PROC: 0QSG35Z Reposition Right Tibia with External Fixation Device, Percutaneous Approach (ICD-10-PCS; principal; 2019-01-24 08:42)
DX: S82.141A Displaced bicondylar fracture of right tibia, initial encounter for closed fracture (principal); I77.71 Dissection of carotid artery; S36.039A Unspecified laceration of spleen, initial encounter; J93.9 Pneumothorax, unspecified; V49.9XXA Car occupant (driver) (passenger) injured in unspecified traffic accident, initial encounter; F17.200 Nicotine dependence, unspecified, uncomplicated; K59.00 Constipation, unspecified

== ENCOUNTER 2019-02-07 05:11 | Inpatient (IN) | payer MEDICAID ==
[~2019-02-07] VITALS: Ht 170.2 cm; Wt 90.1 kg
[2019-02-07] VITALS (22 sets, daily range): BP systolic 105–135; BP diastolic 51–95; Ht 170.2 cm; Wt 90.1 kg
[~2019-02-07 05:11] MED LIST: ASPIRIN81 MG PO; Keflex PO; LOVENOX60 MG/0.6 SC; PROBIOTIC1 EAC1 PO; VISTARIL25 MG PO; ZOFRAN4 MG PO; oxyCODONE IR PO
[2019-02-07 05:45] LABS: HEMATOCRIT 37.3 % (36.0-48.0); HEMOGLOBIN 12.3 g/dL (12-16); MCH 29.9 pg (26.0-34.0); MCV 90.5 fL (80.0-100.0); MEAN PLATELET VOLUME 10.7 fL (7.4-10.4); RBC 4.12 10x6/uL (4.00-5.40); WBC 6.6 10x3/uL (4.8-10.8)
[2019-02-07] MEDS ORDERED: LOVENOX60 MG/0.6 SC (06:19)
[2019-02-07 06:37] LABS: INR 1.02 (0.85-1.17); PROTIME 12.9 SECONDS (11.6-15.0)
[2019-02-07 06:43] LABS: HCG URINE NEGATIVE (NEGATIVE)
--- NOTE | 2019-02-07 12:00 | NUR ---
RECEIVED PT IN BED WITH FAMILY AT BEDSIDE. PT C/O NEEDING TO VOID, HARD FOR PT TO VOID. PT VOIDS MININAL AMOUNT. VSS. WILL CONT TO MONITOR.
--- NOTE | 2019-02-07 13:00 | NUR ---
PT IN BED WITH FAMILY AT BEDSIDE. PT DENIES ANY NEEDS OR DISTESS AT THIS TIME. PT STATES "I'M GOING TO TRY AND TAKE A NAP". VSS. WILL CONT TO MONITOR.
--- NOTE | 2019-02-07 13:45 | NUR ---
ANSWERED CALL LIGHT, PT C/O URGENCY TO VOID. PT SITS ON BEDPAN FOR 10 MINUTES C/O INABILITY TO VOID. PT FINALLY VOIDS. NO NEEDS OR DISTRESS NOTED AT THIS TIME. VSS. WILL CONT TO MONITOR.
--- NOTE | 2019-02-07 15:00 | NUR ---
PT IN BED RESTING WITH EYES OPEN. FAMILY AT BEDSIDE. NO NEEDS OR DISTRESS NOTED AT THIS TIME. VSS. WILL CONT TO MONITOR.
--- NOTE | 2019-02-07 16:38 | NUR ---
ANSWERED CALL LIGHT, PT C/O URGENCY TO VOID. PT SAT ON BEDPAN FOR 5 MINUTES UNTIL PT VOIDED. PT DENIES ANY DISCOMFORT AT THIS TIME. VSS. WILL CONT TO MONITOR.
--- NOTE | 2019-02-07 17:00 | NUR ---
FAMILY AT BEDSIDE. PT WATCHING TV WITH FAMILY. NO NEEDS OR DISTRESS NOTED AT THIS TIME. VSS. WILL CONT TO MONITOR.
--- NOTE | 2019-02-07 17:01 | MORECARE ---
CASE MANAGEMENT DISCHARGE SUMMARY PATIENT: AKHIL VILLALOBOS UNIT: [id number] ADM DATE: 02/07/19 AGE: 33 : 87 SEX: F ROOM/BED: D.08 AUTHOR: NIALL,DOC PHYSICIAN: REFERRING PHYSICIAN: JAILENE DING DO DATE OF SERVICE: 02/07/19 Discharge Plan Patient Name: AKHIL VILLALOBOS Facility: [facility]:[place] : 1985 Planned Disposition: Home with Home Health Anticipated Discharge Date: Discharge Date: Expected LOS: Initial Reviewer: [email or web address] Initial Review Date: 02/07/2019 Generated: 02/07/19 6:00 pm Comments DCP- Discharge Planning Updated by [email or web address]: Jane Juan on 02/07/19 3:[address] Patient Name: AKHIL VILLALOBOS Admission Status: Elective Accout number: [id number] Admission Date: 02-07-2019 : 1985 Admission Diagnosis: Attending: JAILENE DING Current LOS: 1 Anticipated DC Date: Planned Disposition: Home with Home Health Primary Insurance: MEDICAID [place] Discharge Planning Comments: CM MET WITH PATIENT ABOUT DC PLANNING/NEEDS AFTER OBTAINING VERBAL CONSENT. PLANS TO RESUME [facility] , LEN SIGNED. STATES WILL NEED CPM MACHINE. GETS OTHER DME FROM [facility]. I AM NOT SURE IF SHE GETS THE CPM THROUGH THEM OR DR. ZAMUDIO OFFICE. ALSO STATES [facility] WAS SUPPOSED TO BE SEEING HER WITH HER LAST DC AND THEY JUST CAME MONDAY TO SEE HER. CM WILL FOLLOW AND ASSIST. ANTICIPATE DC MONDAY OR MONDAY. Tester Armature Or Fields: Jane Juan DCPIA - Discharge Planning Initial Assessment Updated by [id number]: Jane Juan on 02/07/19 4:56 pm * Is the patient Alert and Oriented? Yes * PCP JAMARCUS * Pharmacy IN [place] * Preadmission Environment Home with Family * ADLs Independent * Other Equipment WC, BEDSIDE COMMODE * List name and contact numbers for known caregivers / representatives who currently or will assist patient after discharge: KARIS, MOM, [phone] * Community resources currently utilized Home Health * Please name any agencies selected above. [facility] WAS SUPPOSED TO SEE BUT JUST WENT TO SEE HER MONDAY FOR AN ASSESSMENT . * Additional services required to return to the preadmission environment? Yes * Can the patient safely return to the preadmission environment? Yes * Has this patient been hospitalized within the prior 30 days at any hospital? Yes Patient Name: AKHIL VILLALOBOS Page [phone] at 1701 All edits/amendments must be made on the electronic document DICTATION DATE: 02/07/191699 SOCIAL SCIENCES CHAIR: LENORA 02/07/191699 RPT#: [id number] DC DATE: STATUS: ADM IN [facility] [address] [place] [address] END OF REPORT
--- NOTE | 2019-02-07 19:00 | NUR ---
SHIFT ASSESSMENT COMPLETE. PT IS A&O X4 WITH NO SIGNS OF ACUTE DISTRESS NOTED. PERRLA, 3 MM, BRISK REACTION TO LIGHT. RR EVEN AND UNLABORED, CLEAR BREATH SOUNDS HEARD BILAT THROUGHOUT ALL LOBES. S1S2 AUDIBLE, HR 108, SINUS TACH SHOWING ON MONITOR. ABD FLAT AND NONTENDER TO TOUCH, BS ACTIVE X4. L AC PIV INFUSING 1/2 NS @ 50 ML/HR. R LEG DERIK WRAP NOTED, BRACE INTACT, LEG ELEVATED ON PILLOWS WITH ICE PACK ACROSS KNEE. CAP REFILL <3 SEC, SHE HAS GOOD SENSATION IN FOOT. L PEDAL PULSE PALP. CALL LIGHT IN REACH, BED IN LOWEST POSITION. MOTHER AT BEDSIDE. REFRESHMENTS BROUGHT TO BEDSIDE. NO FUTHER NEEDS AT THIS TIME. WILL CONT TO MONITOR CLOSELY.
--- NOTE | 2019-02-07 21:00 | NUR ---
300 ML CONCENTRATED URINE COLLECTED IN BEDPAN. PT IS ABLE TO LIFE BUTTOCKS OFF BED TO ASSIST WITH PLACEMENT. PM MEDS GIVEN WITHOUT COMPLICATIONS. REFRESHMENTS BROUGHT TO BEDSIDE. CALL LIGHT IN REACH, SISTER AT BEDSIDE.
--- NOTE | 2019-02-07 23:00 | NUR ---
REASSESSMENT COMPLETE. NO CHANGES IN PT CONDITION. PT BRUSHING TEETH AND STATES THAT SHE IS GOING TO TRY TO SLEEP. SHE STATES THAT SHE IS HAVING SOME DULL PAIN IN HER R LEG. WELDER METAL FAB BUTTON IN HAND. ENCOURAGED WELDER METAL FAB USE. CALL LIGHT IN REACH, NO FURTHER FINDINGS. WILL CONT TO MONITOR.
--- NOTE | 2019-02-07 23:22 | NUR ---
PT IS ANXIOUS/WORRIED ABOUT THE INCREASING PAIN IN HER R LEG. PRN VISTARIL ADMIN. ASSISTED PT ON BEDPAN, 250 ML VOID. REPOSITIONED FOR COMFORT. PEANUT BUTTER MAKER BUTTON WITHIN REACH, ENCOURAGED USE. NO FURTHER NEEDS AT THIS TIME. WILL CONT WITH POC.
[2019-02-08] VITALS (20 sets, daily range): BP systolic 98–140; BP diastolic 35–76
--- NOTE | 2019-02-08 01:00 | NUR ---
PT WOKE UP CRYING AND STATES THAT SHE IS IN A LOT OF PAIN. BOLUS DOSE GIVEN PER COMMUNICATIONS ELECTRICIAN SUPERVISOR ORDERS. REPOSITIONED, ICE PACKS PLACED ON AFFECTED LEG. WILL CONT CLOSE MONITORING.
--- NOTE | 2019-02-08 01:30 | NUR ---
PT STATED THAT SHE WAS NAUSEATED, HOT, AND ITCHY. PRN ZOFRAN AND BENADRYL ADMIN. WILL CONT CLOSE MONITORING.
--- NOTE | 2019-02-08 03:00 | NUR ---
REASSESSMENT COMPLETE. PT STATES THAT SHE IS HAVING 9/10 PAIN. 0.4 MG BOLUS DOSE GIVEN VIA RELATIONS MANAGER. PRN VISTRIL ADMIN FOR ANXIETY. PT STATES THAT SHE IS GOING TO TRY TO GET SOME SLEEP. REPOSITIONED FOR COMFORT. CALL LIGHT IN REACH, NO FURTHER CHANGES IN PT CONDITION. SEE FLOWSHEET FOR FURTHER DETAILS. WILL CONT WITH POC.
--- NOTE | 2019-02-08 03:50 | NUR ---
PT CRYING OUT IN PAIN. SPOKE WITH DR. DING, NEW ORDERS RECIEVED.
--- NOTE | 2019-02-08 05:00 | NUR ---
REPOSITIONED FOR COMFORT. VSS. CALL LIGHT AND LOAN TELLER BUTTON WITHIN REACH. WILL CONT TO MONITOR.
[2019-02-08 05:54] LABS: HEMATOCRIT 32.5 % (36.0-48.0); HEMOGLOBIN 10.6 g/dL (12-16)
--- NOTE | 2019-02-08 06:00 | NUR ---
CHG BATH PROVIDED. PT TOLERATED WELL.
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
--- NOTE | 2019-02-08 09:30 | NUR ---
IV L AC LEAKING. GOOD BLOOD RETURN NOTED. SITE SALINE LOCKED. IV STARTED WITH 20G IN L WRIST ON 1ST ATTEMPT.
--- NOTE | 2019-02-08 09:38 | NUR ---
NUTRITION F/U NURSING REPORTS PT UNABLE TO TOLERATE REG DIET THIS AM 2/2 PAIN. WILL CONTINUE TO PROVIDE DIET, HONOR FOOD PREFERENCES. MONITOR PO INTAKE. RD FOLLOWING
--- NOTE | 2019-02-08 14:37 | NUR ---
1335: DR. DING NOTIFIED OF BREAKTHROUGH PAIN. NEW ORDERS REC'D.
--- NOTE | 2019-02-08 19:00 | NUR ---
REPORT RECEIVED. RECEIVED PATIENT IN BED AWAKE ALERT AND ORIENTED X 4. RLE WRAP/BRACE INTACT, TOES PINK AND WARM WITH CAP REFILL LESS THAN 3 SECONDS. MONITORS CONNECTED TO PATIENT WITH ALARM SET. VSS. CALL LIGHT IN REACH AND ABLE TO UTILIZE TO MAKE NEEDS KNOWN.
--- NOTE | 2019-02-08 19:00 | NUR ---
SHIFT ASSESSMENT FOR 02/08/19 DOCUMENTED ON WRONG DATE (02/07/19) CORRECT DATE AND TIME OF OCURRANCE 02/08/19@1900
[2019-02-09 03:00] VITALS: BP 105/58
[2019-02-09 06:22] LABS: HEMATOCRIT 32.2 % (36.0-48.0); HEMOGLOBIN 10.2 g/dL (12-16)
[2019-02-09 07:00] VITALS: BP 115/66
[2019-02-09] MEDS ORDERED: DILAUDID4 MG PO (11:07)
[2019-02-09] MEDS ORDERED: VISTARIL50 MG PO (11:07)
[2019-02-09] MEDS ORDERED: KEFLEX500 MG PO (11:07)
[2019-02-09] MEDS ORDERED: NEURONTIN 300300 MG PO (11:09)
[2019-02-09] MEDS ORDERED: BAYER CHEWABLE81 MG PO (11:10)
--- NOTE | 2019-02-09 12:09 | MORECARE ---
CASE MANAGEMENT DISCHARGE SUMMARY PATIENT: AKHIL VILLALOBOS UNIT: [id number] ADM DATE: 02/07/19 AGE: 33 : [birth year] SEX: F ROOM/BED: D.08 AUTHOR: NIALLDOC PHYSICIAN: REFERRING PHYSICIAN: JAILENE DING DO DATE OF SERVICE: 02/09/19 Discharge Plan Patient Name: AKHIL VILLALOBOS Facility: [facility]:[place] : 1985 Planned Disposition: Home with Home Health Anticipated Discharge Date: Discharge Date: Expected LOS: Initial Reviewer: [email or web address] Initial Review Date: 02/07/2019 Generated: 02/09/19 1:08 pm Comments DCP- Discharge Planning Updated by [email or web address]: Jane Juan on 02/09/19 11:[address] Patient Name: AKHIL VILLALOBOS Admission Status: Elective Accout number: [id number] Admission Date: 02-07-2019 : 1985 Admission Diagnosis: Attending: JAILENE DING Current LOS: 2 Anticipated DC Date: Planned Disposition: Home with Home Health Primary Insurance: MEDICAID [place] Discharge Planning Comments: CM WILL FAX DC TO [facility] SO THEY CAN RESUME CARE. I SPOKE WITH DR. DING AND HE STATES HIS OFFICE IS SETTING UP THE CPM. CM WILL FOLLOW AND ASSIST NEEDED. Yield Engineer: Jane Juan DCP- Discharge Planning Updated by [email or web address]: Jane Juan on 02/07/19 3:[address] Patient Name: AKHIL VILLALOBOS Admission Status: Elective Accout number: [id number] Admission Date: 02-07-2019 : 1985 Admission Diagnosis: Attending: JAILENE DING Current LOS: 1 Anticipated DC Date: Planned Disposition: Home with Home Health Primary Insurance: MEDICAID [place] Discharge Planning Comments: CM MET WITH PATIENT ABOUT DC PLANNING/NEEDS AFTER OBTAINING VERBAL CONSENT. PLANS TO RESUME [facility] , LEN SIGNED. STATES WILL NEED CPM MACHINE. GETS OTHER DME FROM [facility]. I AM NOT SURE IF SHE GETS THE CPM THROUGH THEM OR DR. ZAMUDIO OFFICE. ALSO STATES [facility] WAS SUPPOSED TO BE SEEING HER WITH HER LAST DC AND THEY JUST CAME MONDAY TO SEE HER. CM WILL FOLLOW AND ASSIST. ANTICIPATE DC MONDAY OR MONDAY. Yield Engineer: Jane Yessica DCPIA - Discharge Planning Initial Assessment Updated by [email or web address]: Jane Yessica on 02/07/19 4:56 pm * Is the patient Alert and Oriented? Yes * PCP JAMARCUS * Pharmacy IN [place] * Preadmission Environment Home with Family * ADLs Independent * Other Equipment WC, BEDSIDE COMMODE * List name and contact numbers for known caregivers / representatives who currently or will assist patient after discharge: MAURICIO DYSON, [phone] * Community resources currently utilized Home Health * Please name any agencies selected above. [facility] WAS SUPPOSED TO SEE BUT JUST WENT TO SEE HER MONDAY FOR AN ASSESSMENT . * Additional services required to return to the preadmission environment? Yes * Can the patient safely return to the preadmission environment? Yes * Has this patient been hospitalized within the prior 30 days at any hospital? Yes Last DP export: 02/07/19 4:01 Patient Name: AKHIL VILLALOBOS Page [phone] at 1209 All edits/amendments must be made on the electronic document DICTATION DATE: 02/09/19 120 TRAVELING PLANT OPERATOR: LENORA 02/09/19 120 RPT#: [id number] DC DATE: STATUS: ADM IN [facility] [address] [place] [address] END OF REPORT
--- NOTE | 2019-02-09 13:27 | NUR ---
0700: DR. DING HERE. NEW ORDERS REC'D. 0715: ASSESSMENT COMPLETE. PAIN MEDS GIVEN 30: VISITORS HERE. UP TO WHEELCHAIR WITHOUT DIFFICULTY. OUTSIDE TO SMOKE. 1045: DR. DING HERE. R LEG DRESSING CHANGED BY DR. DING. DISCHARGE ORDERS REC'D. 1130: IV DC'D. UP IN WHEELCHAIR BATH DONE PER SELF. 1215: DISCHARGE INSTRUCTIONS DONE AND PAPERWORK SIGNED. 1250: DISCHARGED HOME. TO PRIVATE VEHICLE IN OWN WHEELCHAIR.
--- NOTE | 2019-02-09 15:30 | MORECARE ---
CASE MANAGEMENT DISCHARGE SUMMARY PATIENT: AKHIL VILLALOBOS UNIT: [id number] ADM DATE: 02/07/19 AGE: 33 : 89 SEX: F ROOM/BED: D.[facility] AUTHOR: CASH TIERNEY PHYSICIAN: REFERRING PHYSICIAN: JAILENE DING DO DATE OF SERVICE: 02/09/19 Discharge Plan Patient Name: AKHIL VILLALOBOS Facility: [facility]:[place] : 1985 Planned Disposition: Home with Home Health Anticipated Discharge Date: Discharge Date: 02/09/2019 Expected LOS: Initial Reviewer: [email or web address] Initial Review Date: 02/07/2019 Generated: 02/09/19 4:30 pm Comments DCP- Discharge Planning Updated by [email or web address]: Jane Juan on 02/09/19 2:[address] Patient Name: AKHIL VILLALOBOS Admission Status: Elective Accout number: [id number] Admission Date: 02-07-2019 : 1985 Admission Diagnosis: Attending: JAILENE DING Current LOS: 2 Anticipated DC Date: Planned Disposition: Home with Home Health Primary Insurance: MEDICAID [place] Discharge Planning Comments: CM WILL FAX DC TO [facility] SO THEY CAN RESUME CARE. I SPOKE WITH DR. DING AND HE STATES HIS OFFICE IS SETTING UP THE CPM. CM WILL FOLLOW AND ASSIST NEEDED. Measurement Technician: Jane Juan Appended by Jane Juan on 02/09/2019 15:28 CDT: FAXED DC SUM TO [facility] AND CALLED BUT NO ANSWER, I GOT A BUSY SIGNAL. DCP- Discharge Planning Updated by [email or web address]: Jane Juan on 02/07/19 3:[address] Patient Name: AKHIL VILLALOBOS Admission Status: Elective Accout number: [id number] Admission Date: 02-07-2019 : 1985 Admission Diagnosis: Attending: JAILENE DING Current LOS: 1 Anticipated DC Date: Planned Disposition: Home with Home Health Primary Insurance: MEDICAID [place] Discharge Planning Comments: CM MET WITH PATIENT ABOUT DC PLANNING/NEEDS AFTER OBTAINING VERBAL CONSENT. PLANS TO RESUME [facility] , LEN SIGNED. STATES WILL NEED CPM MACHINE. GETS OTHER DME FROM [facility]. I AM NOT SURE IF SHE GETS THE CPM THROUGH THEM OR DR. ZAMUDIO OFFICE. ALSO STATES [facility] ASSISTED WAS SUPPOSED TO BE SEEING HER WITH HER LAST DC AND THEY JUST CAME MONDAY TO SEE HER. CM WILL FOLLOW AND ASSIST. ANTICIPATE DC MONDAY OR MONDAY. Measurement Technician: Jane Juan DCPIA - Discharge Planning Initial Assessment Updated by [email or web address]: Jane Juan on 02/07/19 4:56 pm * Is the patient Alert and Oriented? Yes * PCP JAMARCUS * Pharmacy IN [place] * Preadmission Environment Home with Family * ADLs Independent * Other Equipment WC, BEDSIDE COMMODE * List name and contact numbers for known caregivers / representatives who currently or will assist patient after discharge: MAURICIO DYSON, [phone] * Community resources currently utilized Home Health * Please name any agencies selected above. ALEXSANDRA , [facility] WAS SUPPOSED TO SEE BUT JUST WENT TO SEE HER MONDAY FOR AN ASSESSMENT . * Additional services required to return to the preadmission environment? Yes * Can the patient safely return to the preadmission environment? Yes * Has this patient been hospitalized within the prior 30 days at any hospital? Yes External Providers External Provider[facility] Next Contact Date: Service Request Date: Service Type: Resolution: Reviewer: Comments: Last DP export: 02/09/19 11:09 a Patient Name: AKHIL VILLALOBOS Page [phone] at 1530 All edits/amendments must be made on the electronic document DICTATION DATE: 02/09/19 1530 LIMO DRIVER: LENORA 02/09/19 1530 RPT#: [id number] DC DATE:02/09/19 STATUS: DIS IN [facility] [address] [place] [address] END OF REPORT
--- NOTE | 2019-02-09 17:21 | MORECARE ---
CASE MANAGEMENT DISCHARGE SUMMARY PATIENT: AKHIL VILLLAOBOS UNIT: [id number] ADM DATE: 02/07/19 AGE: 33 : [birth year] SEX: F ROOM/BED: D.[facility] AUTHOR: CASH TIERNEY PHYSICIAN: REFERRING PHYSICIAN: JAILENE DING DO DATE OF SERVICE: 02/09/19 Discharge Plan Patient Name: AKHIL VILLALOBOS Facility: [facility]:[place] : 1985 Planned Disposition: Home Hlth Svc w Plan Readm Anticipated Discharge Date: Discharge Date: 02/09/2019 Expected LOS: Initial Reviewer: [email or web address] Initial Review Date: 02/07/2019 Generated: 02/09/19 6:21 pm Comments DCP- Discharge Planning Updated by [email or web address]: Jane Juan on 02/09/19 2:[address] Patient Name: AKHIL VILLALOBOS Admission Status: Elective Accout number: [id number] Admission Date: 02-07-2019 : 1985 Admission Diagnosis: Attending: JAILENE IDNG Current LOS: 2 Anticipated DC Date: Planned Disposition: Home with Home Health Primary Insurance: MEDICAID [place] Discharge Planning Comments: CM WILL FAX DC TO [facility] SO THEY CAN RESUME CARE. I SPOKE WITH DR. DING AND HE STATES HIS OFFICE IS SETTING UP THE CPM. CM WILL FOLLOW AND ASSIST NEEDED. Environmental Director: Jane Juan Appended by Jane Juan on 02/09/2019 15:28 CDT: FAXED DC SUM TO [facility] AND CALLED BUT NO ANSWER, I GOT A BUSY SIGNAL. DCP- Discharge Planning Updated by [email or web address]: Jane Juan on 02/07/19 3:[address] Patient Name: AKHIL VILLALOBOS Admission Status: Elective Accout number: [id number] Admission Date: 02-07-2019 : 1985 Admission Diagnosis: Attending: JAILENE DING Current LOS: 1 Anticipated DC Date: Planned Disposition: Home with Home Health Primary Insurance: MEDICAID [place] Discharge Planning Comments: CM MET WITH PATIENT ABOUT DC PLANNING/NEEDS AFTER OBTAINING VERBAL CONSENT. PLANS TO RESUME [facility] , LEN SIGNED. STATES WILL NEED CPM MACHINE. GETS OTHER DME FROM [facility]. I AM NOT SURE IF SHE GETS THE CPM THROUGH THEM OR DR. ZAMUDIO OFFICE. ALSO STATES [facility]CC WAS SUPPOSED TO BE SEEING HER WITH HER LAST DC AND THEY JUST CAME MONDAY TO SEE HER. CM WILL FOLLOW AND ASSIST. ANTICIPATE DC MONDAY OR MONDAY. Environmental Director: Jane Juan DCPIA - Discharge Planning Initial Assessment Updated by [email or web address]: Jane Juan on 02/07/19 4:56 pm * Is the patient Alert and Oriented? Yes * PCP JAMARCUS * Pharmacy IN [place] * Preadmission Environment Home with Family * ADLs Independent * Other Equipment WC, BEDSIDE COMMODE * List name and contact numbers for known caregivers / representatives who currently or will assist patient after discharge: KARIS, MOM, [phone] * Community resources currently utilized Home Health * Please name any agencies selected above. [facility] WAS SUPPOSED TO SEE BUT JUST WENT TO SEE HER MONDAY FOR AN ASSESSMENT . * Additional services required to return to the preadmission environment? Yes * Can the patient safely return to the preadmission environment? Yes * Has this patient been hospitalized within the prior 30 days at any hospital? Yes Last DP export: 02/09/19 2:30 p Patient Name: AKHIL VILLALOBOS Page [phone] at 1721 All edits/amendments must be made on the electronic document DICTATION DATE: 02/09/191720 IC DESIGN ENGINEER: LENORA 02/09/191720 RPT#: [id number] DC DATE:02/09/19 STATUS: DIS IN [facility] [address] [place] [address] END OF REPORT
--- NOTE | 2019-02-12 15:23 | MORECARE ---
CASE MANAGEMENT DISCHARGE SUMMARY PATIENT: AKHIL VILLALOBOS UNIT: [id number] ADM DATE: 02/07/19 AGE: 33 : 89 SEX: F ROOM/BED: D[facility] AUTHOR: CASH TIERNEY PHYSICIAN: REFERRING PHYSICIAN: JAILENE DING DO DATE OF SERVICE: 02/12/19 Discharge Plan Patient Name: AKHIL VILLALOBOS Facility: [facility]:[place] : 1985 Planned Disposition: Home Hlth Svc w Plan Readm Anticipated Discharge Date: Discharge Date: 02/09/2019 Expected LOS: Initial Reviewer: [email or web address] Initial Review Date: 02/07/2019 Generated: 02/12/19 4:22 pm Comments DCP- Discharge Planning Updated by [email or web address]: Jane Juan on 02/09/19 3:[address] Patient Name: AKHIL VILLALOBOS Admission Status: Elective Accout number: [id number] Admission Date: 02-07-2019 : 1985 Admission Diagnosis: Attending: JAILENE DING Current LOS: 2 Anticipated DC Date: Planned Disposition: Home with Home Health Primary Insurance: MEDICAID [place] Discharge Planning Comments: CM WILL FAX DC TO [facility] SO THEY CAN RESUME CARE. I SPOKE WITH DR. DING AND HE STATES HIS OFFICE IS SETTING UP THE CPM. CM WILL FOLLOW AND ASSIST NEEDED. Worm Farm Laborer: Jane Juan Appended by Jane Juan on 02/09/2019 15:28 CDT: FAXED DC SUM TO [facility] AND CALLED BUT NO ANSWER, I GOT A BUSY SIGNAL. DCP- Discharge Planning Updated by [email or web address]: Jane Juan on 02/07/19 4:[address] Patient Name: AKHIL VILLALOBOS Admission Status: Elective Accout number: [id number] Admission Date: 02-07-2019 : 1985 Admission Diagnosis: Attending: JAILENE DING Current LOS: 1 Anticipated DC Date: Planned Disposition: Home with Home Health Primary Insurance: MEDICAID [place] Discharge Planning Comments: CM MET WITH PATIENT ABOUT DC PLANNING/NEEDS AFTER OBTAINING VERBAL CONSENT. PLANS TO RESUME [facility] , LEN SIGNED. STATES WILL NEED CPM MACHINE. GETS OTHER DME FROM [facility]. I AM NOT SURE IF SHE GETS THE CPM THROUGH THEM OR DR. ZAMUDIO OFFICE. ALSO STATES [facility] INTERMEDIATE WAS SUPPOSED TO BE SEEING HER WITH HER LAST DC AND THEY JUST CAME MONDAY TO SEE HER. CM WILL FOLLOW AND ASSIST. ANTICIPATE DC MONDAY OR MONDAY. Worm Farm Laborer: Jane Juan DCPIA - Discharge Planning Initial Assessment Updated by [email or web address]: Jane Juan on 02/07/19 4:56 pm * Is the patient Alert and Oriented? Yes * PCP JAMARCUS * Pharmacy IN [place] * Preadmission Environment Home with Family * ADLs Independent * Other Equipment WC, BEDSIDE COMMODE * List name and contact numbers for known caregivers / representatives who currently or will assist patient after discharge: KARIS, MAURICIO, [phone] * Community resources currently utilized Home Health * Please name any agencies selected above. ALEXSANDRA , [facility] WAS SUPPOSED TO SEE BUT JUST WENT TO SEE HER MONDAY FOR AN ASSESSMENT . * Additional services required to return to the preadmission environment? Yes * Can the patient safely return to the preadmission environment? Yes * Has this patient been hospitalized within the prior 30 days at any hospital? Yes External Providers [facility] Next Contact Date: Service Request Date: Service Type: Resolution: Reviewer: Comments: Last DP export: 02/09/19 5:21 p Patient Name: AKHIL VILLALOBOS Page [phone] at 1523 All edits/amendments must be made on the electronic document DICTATION DATE: 02/12/191521 AUTOMOTIVE PARTS INTERPRETER: LENORA 02/12/191521 RPT#: [id number] DC DATE:02/09/19 STATUS: DIS IN [facility] [address] [place] [address] END OF REPORT
== END 2019-02-09 12:50 | disposition home or self-care (01) | DRG 494 ==
LOC: D.OPS 05:11 → D.CVICU 11:23 → D.OPS 12:03 → D.CVICU 12:04 → D.OPS 13:45 → D.CVICU 02-09 12:50
PROVIDERS: Anesthesiology; ADMIT Orthopaedic Surgery; ATTEND Orthopaedic Surgery
PROC: 0QPGX5Z Removal of External Fixation Device from Right Tibia, External Approach (ICD-10-PCS; 2019-02-07)
PROC: 0QSH04Z Reposition Left Tibia with Internal Fixation Device, Open Approach (ICD-10-PCS; principal; 2019-02-07 07:00)
DX: S82.141D Displaced bicondylar fracture of right tibia, subsequent encounter for closed fracture with routine healing (principal); V49.9XXD Car occupant (driver) (passenger) injured in unspecified traffic accident, subsequent encounter; F17.200 Nicotine dependence, unspecified, uncomplicated

== ENCOUNTER 2019-07-02 10:12 | Emergency (ER) | payer MEDICAID ==
[~2019-07-02] VITALS: Ht 170.2 cm; Wt 77.3 kg
[~2019-07-02 10:12] MED LIST changes: +BAYER CHEWABLE81 MG PO; +DILAUDID4 MG PO; +KEFLEX500 MG PO; +NEURONTIN 300300 MG PO; +VISTARIL50 MG PO
[2019-07-02 10:16] VITALS: Ht 170.2 cm; Wt 77.3 kg
[2019-07-02] MEDS ORDERED: HYDROCODON-ACE1 EAC7 PO ×2 (10:18→13:21)
[2019-07-02] MEDS ORDERED: LEXAPRO5 MG (10:18)
[2019-07-02 10:46] LABS: CALC OSMOLALITY 270 mosm/kg (275-300); CALCIUM 8.8 mg/dL (8.5-10.1); CARBON DIOXIDE 25.6 mmol/L (21.0-32.0); CHLORIDE - SERUM 102 mmol/L (98-107); CREATININE - SERUM 0.7 mg/dL (0.6-1.3); GLUCOSE 101 mg/dL (74-106); POTASSIUM - SERUM 3.6 mmol/L (3.5-5.1); SODIUM 136 mmol/L (136-145); UREA NITROGEN 11 mg/dL (7-18); eGFR NON AFRICAN AMERICAN > 90 mL/min (90-120)
[2019-07-02 10:50] LABS: HEMATOCRIT 41.2 % (36.0-48.0); HEMOGLOBIN 13.8 g/dL (12-16); LYMPHOCYTES 22.6 % (15-50); MCH 29.3 pg (26.0-34.0); MCHC 33.5 g/dL (31.0-37.0); MCV 87.5 fL (80.0-100.0); MEAN PLATELET VOLUME 11.8 fL (7.4-10.4); RBC 4.71 10x6/uL (4.00-5.40); RDW 12.9 % (11.5-14.5); WBC 12.9 10x3/uL (4.8-10.8)
[2019-07-02 10:52] LABS: ALBUMIN 3.8 g/dL (3.4-5.0); ALKALINE PHOSPHATASE 105 U/L (30-120); ALT (SGPT) 17 U/L (10-68); AMYLASE - SERUM 21 U/L (25-115); BILIRUBIN - TOTAL 0.22 mg/dL (0.2-1.3); PROTEIN - SERUM 7.7 g/dL (6.4-8.2)
[2019-07-02 10:54] LABS: PLATELET COUNT 190 10x3/uL (130-400)
[2019-07-02 10:55] LABS: LIPASE 34 U/L (73-393)
[2019-07-02 11:09] LABS: HCG URINE NEGATIVE (NEGATIVE)
[2019-07-02 11:37] LABS: BACTERIA FEW /hpf (NEGATIVE); BILIRUBIN NEGATIVE (NEGATIVE); EPITHELIAL CELLS OCC /hpf (0-5); GLUCOSE NEGATIVE (NEGATIVE); KETONE NEGATIVE (NEGATIVE); NITRITE NEGATIVE (NEGATIVE); RED CELLS - URINE 0-5 /hpf (0-5); UROBILINOGEN NORMAL (NORMAL); WHITE CELLS - URINE 0-5 /hpf (NEGATIVE)
[2019-07-02] MEDS ORDERED: ZOFRAN4 MG PO (13:22)
[2019-07-02 13:53] VITALS: BP 93/57
[2019-07-03] MEDS ORDERED: VISTARIL25 MG (10:44)
== END 2019-07-02 13:55 | disposition home or self-care (01) ==
LOC: D.ER 10:12
PROVIDERS: Family Medicine
DX: N70.11 Chronic salpingitis (principal); N83.202 Unspecified ovarian cyst, left side; N83.201 Unspecified ovarian cyst, right side; R10.2 Pelvic and perineal pain

== ENCOUNTER 2019-07-03 09:40 | Day surgery (SDC) | payer MEDICAID ==
[2019-07-03] VITALS (9 sets, daily range): BP systolic 90–122; BP diastolic 54–76; Ht 170.2 cm; Wt 72.7 kg
[~2019-07-03] VITALS: Ht 170.2 cm; Wt 72.7 kg
--- NOTE | ~2019-07-03 | OP ---
PATIENT NAME: AKHIL VILLALOBOS MEDICAL RECORD: [id number] :[birth year] LOCATION:D.OPS ADMISSION DATE: SURGEON: MARIO RODRIGUEZ MD DATE OF OPERATION: 07/03/2019 DATE OF SERVICE: 07/03/2019 PREOPERATIVE DIAGNOSES: 1. Subacute pelvic pain. 2. Bilateral hydrosalpinx. POSTOPERATIVE DIAGNOSES: 1. Suspect adenomyosis. 2. Bilateral tubal abscesses. PROCEDURES: 1. Diagnostic laparoscopy. 2. Bilateral salpingectomies. SURGEON: Mario Rodriguez MD ANESTHESIOLOGIST: Mariusz Yeboah MD ANESTHETIC: General. FINDINGS: Uterus is enlarged and boggy. Ovaries are both unremarkable. Tubes are interrupted. Both the proximal and distal segments are dilated with the proximal segments of the tubes dilated with purulent material extruded from a tube when manipulated. SPECIMENS: 1. Aerobic and anaerobic cultures. 2. Bilateral tubes. SPECIMEN DISPOSITION: Cultures to the lab. All tissue specimens to pathology. EBL: Less than 50 cc. URINE OUTPUT: Quantity sufficient void prior to this procedure. FLUIDS: 700 cc of lactated Ringer's. DRAINS: None. COMPLICATIONS: None. DESCRIPTION OF PROCEDURE: The patient is a 34-year-old female who has been seen in the Emergency Room with the followup in the clinic. The patient was evaluated the day of surgery, found to have painful pelvis and abdomen with findings on imaging study of what was suggested to be bilateral hydrosalpinx. The patient is consented for diagnostic laparoscopy and any indicated procedure. The patient was taken to the operating room where anesthetic was obtained without difficulty. The patient is now prepped and draped in usual sterile fashion after being placed supine on the table. Incision was made in the umbilicus to accommodate a 5-mm trocar, which was inserted without difficulty. OPERATIVE REPORT [id number] AKHIL VILLALOBOS Pneumoperitoneum was now developed. The patient now is placed in Trendelenburg position and accessory port was placed in the midline. Through this port, a blunt probe was inserted and the bowel swept free of the pelvis with the above findings. During manipulation of the right tube it ruptures a purulent material extrudes from a rent in tube surface. At this point, the 5-mm port was removed from the midline to the right lower quadrant and 10-mm ports placed in the midline. Using a grasper from the 10-mm port, the distal segment of the tube was elevated and using the Thunderbeat coagulation cutter it was removed from its attachments to the adnexa and removed from the pelvis. The proximal segment of the tube was now removed in similar fashion. After removal of the right tube, attention was now directed to the left side. Through the 10-mm port, a grasper was inserted in the distal segment, the proximal segment of the left tube was elevated and from the right coagulation cautery was used to free the proximal segment and remove it from the pelvis. Distal segment of the tube was removed in like fashion. All specimens are sent for tissue analysis. Cultures taken of the purulent materials in the pelvis. Sponge, lap, needle counts were correct times 2. The pneumoperitoneum was released. The accessory trocars were removed under direct visualization and then the primary trocar removed. All sites closed with a subcuticular stitch and sterile dressing applied. The patient tolerated this procedure well and went to the recovery area in stable condition. TRANSINT:[id number] Voice Confirmation ID: [id number] DOCUMENT ID: [id number] MARIO RODRIGUEZ MD CC: [id number] DICTATION DATE: 07/09/19 1621 GREASE MAKER HEAD: 07/10/19 1016 [facility] 07/04/19 [facility] [address] [place] [address]
[~2019-07-03 09:40] MED LIST changes: +HYDROCODON-ACE1 EAC7 PO; +LEXAPRO5 MG
[2019-07-03 10:44] LABS: HCG URINE NEGATIVE (NEGATIVE)
[2019-07-03] MEDS ORDERED: VISTARIL25 MG (10:44)
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
--- NOTE | 2019-07-03 13:45 | NUR ---
DR. RODRIGUEZ ON UNIT, TO ROOM, TO SPEAK WITH PT. SEE [facility] ADM BY THIS RN. PT C/O ITCHING, BUT STATES "IT'S NOT REALLY THAT BAD RIGHT NOW, SO I WILL WAIT AND SEE IF IT GETS WORSE TO LET YOU KNOW IF I NEED ANYTHING". PERICARE DONE WITH FOAM CLEANSER, UNDERPAD/CHUX CHANGED. PERIPANTIES/PAD APPLIED. PT REQUESTS SOMETHING TO DRINK OTHER THAN WATER, PT REQUESTS GEORGINA COLA, SERVED. PT CONTINUES TO DENY N/V.
--- NOTE | 2019-07-03 13:50 | NUR ---
PT REQUESTS A WARM BLANKET FOR HER AND SOME PILLOWS AND BLANKETS FOR HER . PROVIDED. SRUP X2, CALL LIGHT AND PHONE WITHIN REACH.
--- NOTE | 2019-07-03 13:55 | NUR ---
PT REQUESTS A GEORGINA COLA FOR HER , SERVED. PT DENIES ALL OTHER NEEDS AT THIS TIME. SRUP X2, CALL LIGHT AND PHONE WITHIN REACH.
--- NOTE | 2019-07-03 16:15 | NUR ---
PT CALLS OUT COMMUNICATIONS SYSTEMS ENGINEER LIGHT REQUESTING TO GET UP TO THE BATHROOM, SCD'S REMOVED, PT ASSISTED TO BR, GAIT SLOW AND STEADY. PT VOIDS PER SELF, UNMEASURED AMOUNT. PERICARE DONE PER SELF WITH WARM WET WASHCLOTHS, PERIPADS/PANTIES AVAILABLE TO PT. PT THEN BACK TO BED, HOB ELEVATED TO 30 DEGREES. DIETARY HAS SERVED REGULAR SUPPER TRAY TO PT. DIETARY ALSO SERVED A SANDWICH TRAY. PT STATES "I THINK I WILL CALL MY MOM TO BRING ME SOME CHICK SRIDHAR A TO EAT". PT DENIES ALL OTHER NEEDS AT THIS TIME. SR UP X 2, CALL LIGHT AND PHONE WITHIN REACH.
--- NOTE | 2019-07-03 19:00 | NUR ---
REPORT RECEIVED FROM DESMOND WEN
--- NOTE | 2019-07-03 19:45 | NUR ---
PATIENT SITTING UP IN BED. AT BEDSIDE. ASSESSMENT AND VITAL SIGNS DONE. RESPIRATIONS AT EASE. LUNG SOUNDS CLEAR IN ALL LARSEN. HEART REGULAR RATE AND RHYTHM. ABDOMEN SOFT, NON TENDER. BOWEL SOUNDS PRESENT X 4 QUADRANTS. 2 SMALL INCISIONS NOTED TO ABDOMEN. NO REDNESS, EDEMA, OR DRAINAGE NOTED TO INCISIONS. +1 EDEMA NOTED TO R LEG. SCAR FROM PREVIOUS SURGERY NOTED TO R KNEE. PIV IN L WRIST. NO REDNESS OR EDEMA NOTED TO SITE. PATIENT DENIES ANY PAIN AT THIS TIME. DENIES ANY NEEDS OR CONCERNS. BED IN LOWEST POSITION, SIDE RAILS UP X2, C/L AND WATER WITHIN REACH.
--- NOTE | 2019-07-03 21:30 | NUR ---
PATIENT SITTING UP IN BED. DENIES PAIN AT THIS TIME. AT BEDSIDE. REQUWESTS TO SHOWER. PATIENT SALINE LOCKED. TOWELS AND WASHCLOTHS PROVIDED. PATIENT DENIES ANY FURTHER NEEDS. BED IN LOWEST POSITION, SIDE RAILS UP X2, C/L AND WATER WITHIN REACH.
--- NOTE | 2019-07-03 23:19 | NUR ---
PATIENT SITTING UP IN BED. STATES PAIN 5 OUT OF 10. PERCOCET 2 TABLETS ADMINISTERED PO. PATIENT DENIES ANY FURTHER NEEDS. BED IN LOWEST POSITION, SIDE RAILS UP X 2, C/L AND WATER WITHIN REACH.
--- NOTE | 2019-07-04 01:45 | NUR ---
PATIENT LYING QUIETLY IN BED WITH EYES CLOSED. EASILY AROUSED. STATES PAIN 5 OUT OF 10. SCHEDULED TORADOL ADMINISTERED SLOW IVP. ZOSYN 3.375 GM ADMINISTERED IVPB OVER 30 MINUTES. INFUSION STARTED. PATIENT DENIES FURTHER NEEDS. BED IN LOWEST POSITION, SIE RAILS UOP X 2, C/L AND WATER WITHIN REACH.
--- NOTE | 2019-07-04 03:30 | NUR ---
PATIENT LYING QUIETLY IN BED WITH EYES CLOSED. RESPIRATIONS AT EASE. BED IN LOWEST POSITION, SIDE RAILS UP X 2, C/L AND WATER WITHIN REACH.
[2019-07-04 05:15] VITALS: BP 96/52
--- NOTE | 2019-07-04 05:16 | NUR ---
PATIENT SITTING UP IN BED. STATES PAIN 7 OUT OF 10. PERCOCET 2 TABLETS ADMINISTERED PRN. VITAL SIGNS DONE AT THIS TIME. PATIENT DENIES ANY FURTHER NEEDS. BED IN LOWEST POSITION, SIDE RAILS UP X 2, C/L AND WATER WITHIN REACH.
[2019-07-04 07:53] VITALS: BP 86/54
--- NOTE | 2019-07-04 08:04 | NUR ---
AWAKE -SITTING UP IN BED. ASSESSMENT DONE. VERBAL RESPONSES APPRO TO QUESTIONS. STATES IS UP TO VOID NEEDED WITHOUT PROBLEMS. RATES PAIN A 6 ON SCALE OF 0-10- STRATES CRAMPING IN ABD. QUESTIONS WHEN DR RODRIGUEZ WILL BE HERE- STATES IS READY TO GO HOME. VISITOR AT BEDSIDE. LAP INCISIONS X3- DERMABOND NOTED - NO DRAINAGE -APPEARANCE WNL. DENIES NEEDS.
--- NOTE | 2019-07-04 08:08 | NUR ---
UP TO BATHROOM TO VOID.
--- NOTE | 2019-07-04 08:25 | NUR ---
ICU NURSE TO UNIT- STATES THAT PT WANTS TO GO FOR A RIDE.
--- NOTE | 2019-07-04 08:40 | NUR ---
PHONED DR RODRIGUEZ AND EXPLAINED THAT PT WANTS TO GO OUTSIDE AND THAT ICU NURSE COME TO UNIT TO SEE PT. DR RODRIGUEZ STATES THAT HE WILL BE HERE IN ABOUT ONE HOUR AND WILL PROB DISCHARGE PT. ENTERED ROOM TO EXPALIN SITUATION TO PT. PT STATES "I WENT LAST NIGHT AND I AM GOING TODAY" NOTIFIED SUPERVISIOR FOR FURTHER INSTRUCTIONS.
--- NOTE | 2019-07-04 08:50 | NUR ---
[facility]- [facility]ADY SUPERVISIOR CALLS UNIT AND STATES TO TAKE PT TO FRONT DOOR VIA W/C AND ICU NURSE JEANMARIE WILL MEET HER AND TAKE HER OUTSIDE.
--- NOTE | 2019-07-04 08:59 | NUR ---
PT REFUSES W/C AND STAES THAT SHE WANTS TO WALK - STATES IT WILL HELP WITH CRAMPING. ESCORTED PT TO [facility]ONT DO[facility] OF HOSPITAL PER SUPERVISIOR INSTRUCTIONS.
--- NOTE | 2019-07-04 09:56 | NUR ---
in room- sitting up in bed. denies needs.
--- NOTE | 2019-07-04 10:20 | NUR ---
dr rodney here to see pt- discharge orders received.
--- NOTE | 2019-07-04 11:03 | NUR ---
iv discontinued- cath tip intact- pressure held and bandaide applied.
[2019-07-04] MEDS ORDERED: PERCOCET 7.5/321 TAB PO (11:10)
--- NOTE | 2019-07-04 11:15 | NUR ---
DISCHARGE INST VERBAL AND WRITTEN GIVEN. PRESCRIPTION FOR PERCOCET 7.5 GIVEN ALONG WITH PT MED REC AND DRUG DATA SHEET. SEE SIGNED DISCHARGE SHEET FOR OTHER INST. PFW POST OPERATIVE LAPROSCOPY INST GIVEN. PT HEALTH SUMMARY GIVEN. DENIES ANY QUESTIONS. PT REFUSES W/C TO DSCHARGE STATES SHE WANTS TO WALK TO TO FRONT DOOR. DISCHARGED HOME WITH SIGN OTHER.
[2019-07-07 15:08] LABS: CHLAMYDIA TRACHOMATIS, NAA Negative (Negative)
== END 2019-07-04 11:15 | disposition home or self-care (01) ==
LOC: D.OPS 09:40 → D.LD 13:10 → D.OPS 07-04 11:15
PROVIDERS: ATTEND Obstetrics & Gynecology
DX: R10.2 Pelvic and perineal pain (principal); N70.11 Chronic salpingitis; R19.00 Intra-abdominal and pelvic swelling, mass and lump, unspecified site

== ENCOUNTER 2019-07-09 13:53 | Emergency (ER) | payer MEDICAID ==
[2019-07-03 15:25] VITALS: BMI 25.1
[~2019-07-09 13:53] MED LIST changes: +PERCOCET 7.5/321 TAB PO; +VISTARIL25 MG
== END 2019-07-09 14:35 | disposition left against medical advice (07) ==
LOC: D.ER 13:53
DX: R52 Pain, unspecified (principal)

== ENCOUNTER → 2019-09-12 13:29 | Outpatient (CLI) | payer MEDICAID ==
[2019-07-03 15:25] VITALS: BMI 25.1
== END | disposition home or self-care (01) ==
LOC: D.CT 13:29
PROVIDERS: ATTEND Internal Medicine Cardiovascular Disease
DX: I77.71 Dissection of carotid artery (principal)

== ENCOUNTER → 2020-09-03 07:22 | Outpatient (CLI) | payer MEDICAID ==
[2019-07-03 15:25] VITALS: BMI 25.1
== END | disposition home or self-care (01) ==
LOC: D.CT 08-31 10:30
PROVIDERS: ATTEND Internal Medicine Interventional Cardiology
DX: I77.71 Dissection of carotid artery (principal)